=== PATIENT | female | born 1930 | race American Indian/Alaskan Native ===

== ENCOUNTER 2016-09-10 01:29 | Inpatient (IN) | payer MEDICARE, MEDICAID ==
[2016-09-10 01:30] VITALS: BMI 25.0
--- NOTE | 2016-09-10 02:01 | C.PDOC ---
History Of Present Illness Patient [facility] complaining of fever and vaginal bleeding. History is from [facility]. When patient was asked, she denies vaginal bleeding and states she is unsure why she is here. Patient denies any complaints at this time. Time Seen by Provider: 09/10/16 02:01 Chief Complaint (Nursing): Fever History Per: Other ([facility]) History/Exam Limitations: clinical condition Onset/Duration Of Symptoms: Other Current Symptoms Are (Timing): Still Present Location Of Pain: None Sick Contacts (Context): None Associated Symptoms: Fever Ear Symptoms: Bilateral: None Severity: None Pain Scale Rating Of: 0 Recent travel outside of the [place]: No Additional History Per: Group Home Past Medical History Reviewed: Historical Data, Nursing Documentation, Vital Signs Vital Signs: Last Vital Signs Temp 101.9 F H 09/10/16 05:20 Pulse 104 H 09/10/16 05:20 Resp 19 09/10/16 05:20 BP 148/59 L 09/10/16 05:20 Pulse Ox 96 09/10/16 05:35 - Medical History PMH: CAD, CHF, Dementia, Fractures, HTN - [facility] Procedures CL FX REDUC-TIBIA/FIBULA (11/18/14) INJECT/INFUSE NEC (11/18/14) Family History: States: Unknown Family Hx - Social History Hx Alcohol Use: No Hx Substance Use: No - Immunization History Hx Tetanus Toxoid Vaccination: Yes Hx Influenza Vaccination: Yes Hx Pneumococcal Vaccination: Yes Review Of Systems Constitutional: Positive for: Fever Gastrointestinal: Negative for: Nausea, Vomiting, Abdominal Pain Genitourinary: Positive for: Vaginal Bleeding Musculoskeletal: Negative for: Back Pain Physical Exam - Physical Exam Appears: Non-toxic, No Acute Distress Skin: Warm, Dry Head: Atraumatic, Normacephalic Eye(s): bilateral: EOMI Oral Mucosa: Moist Neck: Supple Chest: Symmetrical Cardiovascular: Rhythm Regular Respiratory: No Rales, No Rhonchi, No Wheezing Gastrointestinal/Abdominal: Bowel Sounds (tympanic to percussion), Soft, No Tenderness, No Guarding, No Rebound, Other (incontinent to urine) Extremity: Other (left hemiplegia) Neurological/Psych: Other (awake, alert, oriented x2) ED Course And Treatment - Laboratory Results Result Diagrams: 09/10/16 02:43 05/16/17 02:43 ECG: Interpreted By Me, Viewed By Me ECG Rhythm: Sinus Rhythm (103), Nonspecific Changes O2 Sat by Pulse Oximetry: 96 (room air) Pulse Ox Interpretation: Normal - Radiology CXR: Interpreted by Me, Viewed By Me CXR Interpretation: Yes: Other (small left effusion , possible rll infiltrate). No: Fracture, Pnemothorax Progress Note: Plan: Labs, VBG, Chest x-ray, IV fluids Disposition Discussed With Dr.: Sabas Montana Comment: accepted the pt on his service and took over the care at 3:56 AM Doctor Will See Patient In The: Hospital Counseled Patient/Family Regarding: Studies Performed, Diagnosis - Disposition Disposition: HOSPITALIZED Disposition Time: 02:01 Condition: FAIR - Clinical Impression Clinical Impression: Fever, UTI (urinary tract infection) - Scribe Statement The provider has reviewed the documentation as recorded by the Scribe Fern Thibodeaux Provider Attestation: All medical record entries made by the Scribe were at my direction and personally dictated by me. I have reviewed the chart and agree that the record accurately reflects my personal performance of the history, physical exam, medical decision making, and the department course for this patient. I have also personally directed, reviewed, and agree with the discharge instructions and disposition. Decision To Admit - Pt Status Changed To: Hospital Disposition Of: Inpatient - Admit Certification Admit to Inpatient:: After my assessment, the patient will require hospitalization for at least two midnights. This is because of the severity of symptoms shown, intensity of services needed, and/or the medical risk in this patient being treated as an outpatient. - InPatient: Physician Admission Certification:: After my assessment, the patient will require hospitalization for at least two midnights. This is because of the severity of symptoms shown, intensity of services needed, and/or the medical risk in this patient being treated as an outpatient. - . Bed Request Type: Regular Admitting Physician: Sabas Montana Patient Diagnosis: Fever, UTI (urinary tract infection)
[2016-09-10] MEDS ORDERED: Sodium Chloride 0.9% 1,000 ML IV SCH (02:15)
[2016-09-10 02:49] LABS: VENOUS BLOOD GAS BASE EXCESS 2.7 mmol/L (0.0-2.0); VENOUS BLOOD GAS PCO2 50 mmHg (40-60); VENOUS BLOOD PH 7.37 (7.32-7.43)
[2016-09-10 02:57] LABS: POTASSIUM 4.7 mmol/L (3.6-5.2)
[2016-09-10 03:00] LABS: BILIRUBIN,TOTAL 0.7 mg/dL (0.2-1.3); TOTAL PROTEIN 7.6 g/dL (6.3-8.3)
[2016-09-10 03:01] LABS: CALCIUM 8.7 mg/dl (8.6-10.4)
[2016-09-10 03:02] LABS: BASO # 0.1 K/uL (0.0-0.2); BASO % 0.5 % (0.0-2.0); EOS % 0.2 % (0.0-4.0); HEMATOCRIT 31.5 % (34.0-47.0); LYMPH # 2.8 K/uL (1.0-4.3); LYMPH % 18.9 % (20.0-40.0); MEAN CELL VOLUME 87.2 fL (81.0-99.0); MEAN CORPUSCULAR HEMOGLOBIN 27.4 pg (27.0-31.0); MEAN CORPUSCULAR HGB CONC 31.4 g/dL (33.0-37.0); MEAN PLATELET VOLUME 9.4 fL (7.2-11.7); MONO # 1.3 K/uL (0.0-0.8); RED CELL DISTRIBUTION WIDTH 15.6 % (11.5-14.5); WHITE BLOOD COUNT 14.9 K/uL (4.8-10.8)
[2016-09-10 03:13] LABS: INR 1.1
[2016-09-10] MEDS ORDERED: Piperacillin/Tazobact 3.375 gm 100 ML IVPB STA ×2 (03:16→06:21)
[2016-09-10] MEDS ORDERED: LACTULOSE 30 GM PO SCH (06:30)
[2016-09-10] MEDS ORDERED: INSULIN LISPRO PROTAMINE SC SCH (06:30)
[2016-09-10] MEDS ORDERED: INSULIN LISPRO SC SCH (06:30)
[2016-09-10] MEDS ORDERED: INSULIN LISPRO MIX SC SCH (06:30)
[2016-09-10 08:14] LABS: RBC URINE 72 /hpf (0-3); URINE BACTERIA FEW (<OCC); URINE BILIRUBIN NEGATIVE (NEGATIVE); URINE BLOOD 3+ (NEGATIVE); URINE COLOR Amber (YELLOW); URINE GLUCOSE (UA) NORMAL (Normal); URINE KETONE NEGATIVE (NEGATIVE); URINE LEUKOCYTE ESTERASE 2+ Leu/uL (Negative); URINE PROTEIN 2+ mg/dL (NEGATIVE); URINE UROBILINOGEN NORMAL mg/dL (0.2-1.0); WBC CLUMPS OCC /hpf; WBC URINE 456 /hpf (0-5)
[2016-09-10] MEDS: Nitroglycerin 0.4 mg/hr Top Patch TD SCH (09:35)
[2016-09-10] MEDS: methIMAzole 5 MG TAB PO SCH (09:36)
[2016-09-10] MEDS: Ferrous Sulfate 300 mg/5 mL Liq UD PO SCH ×3 (09:44→18:00)
[2016-09-10] MEDS: (Novolog) Insulin Aspart, Recombinant 100 u/ml 10 ml vial SC SCH ×4 (09:44→22:24)
[2016-09-10] MEDS ORDERED: TIMOLOL OP SCH ×2 (10:00)
[2016-09-10] MEDS ORDERED: Enoxaparin 40 mg Syringe SC SCH (10:00)
[2016-09-10] MEDS ORDERED: Labetalol Hydrochloride 300 mg Tab PO SCH (10:00)
--- NOTE | 2016-09-10 10:43 | CP.PCM.HP ---
History of Present Illness - History of Present Illness History of Present Illness: CC: fever Patient is an elderly group home resident who is diabetic on insulin , HTN, Hyperlipidemia, chronincally sick, incontinent to urine presents to the ED from the group home complaining of fever and vaginal bleeding.pt cannot give completet history, and denies any urinary symtoms as she is incontinnet and wears pampers. History is from group home. When patient was asked, she denies vaginal bleeding and states she is unsure why she is here. Patient denies any complaints at this time. Present on Admission - Present on Admission Any Indicators Present on Admission: No Review of Systems - Review of Systems Systems not reviewed;Unavailable: Acuity of Condition - Constitutional Constitutional: Chills, Fatigue, Fever, Lethargy - EENT Eyes: absent: As Per HPI, Blind Spots, Blurred Vision, Change in Vision, Decreased Night Vision, Diplopia, Discharge, Dry Eye, Exophthalmos, Floaters, Irritation, Itchy Eyes, Loss of Peripheral Vision, Pain, Photophobia, Requires Corrective Lenses, Sees Flashes, Spots in Vision, Tunnel Vision, Other Visual Disturbances, Loss of Vision, Other - Breasts Breasts: absent: As Per HPI, Change in Shape, Mass, Pain, Nipple Discharge, Nipple Inversion, Skin Changes, Swelling, Other - Cardiovascular Cardiovascular: absent: As Per HPI, Acrocyanosis, Chest Pain, Chest Pain at Rest , Chest Pain with Activity, Claudication, Diaphoresis, Dyspnea, Dyspnea on Exertion, Edema, Irregular Heart Rhythm, Pain Radiating to Arm/Neck/Jaw, Leg Edema, Leg Ulcers, Lightheadedness, Orthopnea, Palpitations, Paroxysmal Nocturnal Dyspnea, Pedal Edema, Radiating Pain, Rapid Heart Rate, Slow Heart Rate, Syncope, Other - Reproductive: Female Reproductive:Female: Vaginal Discharge Past Patient History - Tetanus Immunizations Tetanus Immunization: Unknown - Past Social History Smoking Status: Unknown If Ever Smoked - CARDIAC Hx Congestive Heart Failure: Yes Hx Hypertension: Yes - PULMONARY Hx Respiratory Disorders: No - NEUROLOGICAL Hx Dementia: Yes - HEENT Hx HEENT Problems: Yes Hx Glaucoma: Yes - RENAL Hx Chronic Kidney Disease: No - ENDOCRINE/METABOLIC Hx Endocrine Disorders: Yes Hx Diabetes Mellitus Type 2: Yes - HEMATOLOGICAL/ONCOLOGICAL Hx Blood Disorders: No - INTEGUMENTARY Hx Dermatological Problems: No - MUSCULOSKELETAL/RHEUMATOLOGICAL Hx Fractures: Yes - GASTROINTESTINAL Hx Gastrointestinal Disorders: No - GENITOURINARY/GYNECOLOGICAL Hx Genitourinary Disorders: No - PSYCHIATRIC Hx Substance Use: No - SURGICAL HISTORY Hx Surgeries: No Meds Allergies/Adverse Reactions: Allergies Allergy/AdvReac Type Severity Reaction Status Date / Time No Known Allergies Allergy Verified 09/10/16 01:55 Physical Exam - Constitutional Appears: No Acute Distress - Head Exam Head Exam: ATRAUMATIC, NORMAL INSPECTION, NORMOCEPHALIC - Eye Exam Eye Exam: EOMI, Normal appearance, PERRL Pupil Exam: NORMAL ACCOMODATION, PERRL Additional comments: eyes have some scabs around eye no icterus - ENT Exam ENT Exam: Mucous Membranes Moist, Normal Exam - Respiratory Exam Respiratory Exam: Clear to Auscultation Bilateral, NORMAL BREATHING PATTERN - Cardiovascular Exam Cardiovascular Exam: REGULAR RHYTHM, +S1, +S2 - GI/Abdominal Exam GI & Abdominal Exam: Normal Bowel Sounds, Soft. absent: Tenderness - Rectal Exam Rectal Exam: Deferred - Extremities Exam Additional comments: left sided hemiplegia - Neurological Exam Neurological exam: Alert, CN II-XII Intact, Normal Gait, Oriented x3, Reflexes Normal - Psychiatric Exam Psychiatric exam: Normal Affect, Normal Mood Results - Vital Signs Recent Vital Signs: Last Vital Signs Temp 100 F H 09/10/16 07:29 Pulse 101 H 09/10/16 07:29 Resp 28 H 09/10/16 07:29 BP 133/43 L 09/10/16 07:29 Pulse Ox 100 09/10/16 07:29 - Labs Result Diagrams: 09/11/16 07:00 09/11/16 07:00 Labs: Laboratory Results - last 24 hr 09/10/16 09/10/16 09/10/16 07:06 07:24 07:48 POC Glucose (mg/dL) 166 H Urine Color Ruby Urine Clarity Hazy Urine pH 8.0 Ur Specific [place] 1.012 Urine Protein 2+ H Urine Glucose (UA) Normal Urine Ketones Negative Urine Blood 3+ H Urine Nitrate Negative Urine Bilirubin Negative Urine Urobilinogen Normal Ur Leukocyte Esterase 2+ H Urine WBC (Auto) 456 H Urine RBC (Auto) 72 H Urine WBC Clumps (Auto) Occ H Ur Squamous Epith Cells 1 Urine Bacteria Few H Blood Type O POSITIVE Antibody Screen Negative Assessment & Plan (1) Fever Status: Acute (2) UTI (urinary tract infection) Assessment and Plan: rule out sepsis Status: Acute
[2016-09-10] MEDS: Sodium Chloride 0.9% 1,000 ML IV SCH ×2 (11:43→19:13)
--- NOTE | 2016-09-10 12:10 | RAD ---
PROCEDURE: CHEST RADIOGRAPH, 1 VIEW HISTORY: Shortness of breath COMPARISON: None available. FINDINGS: LUNGS: Moderate venous congestion. Right hilar prominence. Left basilar airspace opacity with small left pleural effusion. Biapical pleural thickening with upper lobe granulomatous changes. Linear consolidation at the right lung apex. Post treatment followup may be helpful if clinically indicated. PLEURA: As above. CARDIOVASCULAR: Cardiomegaly. Calcification at the aortic knob. OSSEOUS STRUCTURES: Degenerative changes in the spine and shoulders. VISUALIZED UPPER ABDOMEN: Normal. OTHER FINDINGS: None. IMPRESSION: Moderate venous congestion. Right hilar prominence. Left basilar airspace opacity with small left pleural effusion. Biapical pleural thickening with upper lobe granulomatous changes. Linear consolidation at the right lung apex. Post treatment followup may be helpful if clinically indicated.
[2016-09-10] MEDS: Brimonidine 0.2% Opth Sol (5ml) OD SCH ×2 (12:15→21:55)
[2016-09-10] MEDS: Dorzolamide 2% Opht Sol 10ml OD SCH ×2 (12:16→19:20)
[2016-09-10] MEDS: Piperacill/Tazo 2.25gm in Dex 2.25 GM/50 ML BAG IVPB SCH ×2 (16:52→22:00)
[2016-09-10] MEDS: (Novolog Mix 70/30) Insulin Aspart/Insulin Aspar 100 units/ml SC SCH (18:00)
[2016-09-10 18:58] VITALS: RESP 20
[2016-09-10] MEDS: Labetalol Hydrochloride 300 mg Tab PO SCH (21:56)
[2016-09-10] MEDS: Latanoprost 2.5 ml Opht Soln OD SCH (22:11)
[2016-09-11] MEDS: Sodium Chloride 0.9% 1,000 ML IV SCH ×3 (01:00→22:00)
[2016-09-11] MEDS ORDERED: INSULIN LISPRO PROTAMINE SC SCH (06:30)
[2016-09-11] MEDS ORDERED: INSULIN LISPRO SC SCH (06:30)
[2016-09-11] MEDS ORDERED: INSULIN LISPRO MIX SC SCH (06:30)
[2016-09-11] MEDS: Piperacill/Tazo 2.25gm in Dex 2.25 GM/50 ML BAG IVPB SCH ×3 (06:31→22:00)
[2016-09-11 07:30] LABS: BASO # 0.1 K/uL (0.0-0.2); BASO % 0.5 % (0.0-2.0); EOS # 0.1 K/uL (0.0-0.7); EOS % 0.6 % (0.0-4.0); HEMATOCRIT 27.6 % (34.0-47.0); LYMPH # 2.7 K/uL (1.0-4.3); LYMPH % 22.9 % (20.0-40.0); MEAN CELL VOLUME 88.1 fL (81.0-99.0); MEAN CORPUSCULAR HEMOGLOBIN 27.5 pg (27.0-31.0); MEAN CORPUSCULAR HGB CONC 31.2 g/dL (33.0-37.0); MEAN PLATELET VOLUME 9.1 fL (7.2-11.7); MONO # 1.1 K/uL (0.0-0.8); MONO % 9.4 % (0.0-10.0); NRBC % 0.1 % (0.0-2.0); RED CELL DISTRIBUTION WIDTH 15.5 % (11.5-14.5); WHITE BLOOD COUNT 11.6 K/uL (4.8-10.8)
[2016-09-11 07:35] LABS: POTASSIUM 4.3 mmol/L (3.6-5.2)
[2016-09-11 07:39] LABS: CALCIUM 8.2 mg/dl (8.6-10.4)
--- NOTE | 2016-09-11 09:20 | US ---
HISTORY: fever COMPARISON: None. TECHNIQUE: Sonographic evaluation of the abdomen. Please note that examination is grossly limited. The patient was unable to cooperate for the examination, both for positioning and respiratory instructions. FINDINGS: LIVER: Measures 17.3 cm. Diffusely increased echogenicity of the liver parenchyma. Consistent with fatty infiltration. No mass. No intrahepatic bile duct dilatation. GALLBLADDER: Cholelithiasis. No significant mural thickening or pericholecystic fluid. Negative sonographic Garcia sign. COMMON BILE DUCT: Measures 6 mm. No stones. No dilatation. PANCREAS: Grossly limited due to overlying bowel gas. RIGHT KIDNEY: Measures 9.4 acm. Normal echogenicity. No calculus, mass, or hydronephrosis. LEFT KIDNEY: Measures 10.2cm. Normal echogenicity. No calculus, mass, or hydronephrosis. SPLEEN: Normal in size and contour. No mass. AORTA: Could not be evaluated IVC: Could not be evaluated OTHER FINDINGS: None. IMPRESSION: Grossly limited study. Cholelithiasis without sonographic evidence of cholecystitis. Fatty infiltration of the liver. Limited visualization of pancreas. No evidence of biliary obstruction.
[2016-09-11] MEDS ORDERED: Enoxaparin 30 mg Syringe SC SCH (10:00)
[2016-09-11 10:44] VITALS: TEMP 98.5
[2016-09-11] MEDS: Dorzolamide 2% Opht Sol 10ml OD SCH ×2 (10:45→17:58)
[2016-09-11] MEDS: Brimonidine 0.2% Opth Sol (5ml) OD SCH ×2 (10:45→22:10)
[2016-09-11] MEDS: Nitroglycerin 0.4 mg/hr Top Patch TD SCH (10:47)
[2016-09-11] MEDS: Ferrous Sulfate 300 mg/5 mL Liq UD PO SCH ×3 (10:48→17:42)
[2016-09-11] MEDS: Labetalol Hydrochloride 300 mg Tab PO SCH ×2 (10:49→22:11)
[2016-09-11] MEDS: methIMAzole 5 MG TAB PO SCH (10:50)
[2016-09-11] MEDS: (Novolog) Insulin Aspart, Recombinant 100 u/ml 10 ml vial SC SCH ×4 (10:58→22:33)
[2016-09-11] MEDS: (Novolog Mix 70/30) Insulin Aspart/Insulin Aspar 100 units/ml SC SCH ×2 (10:59→17:43)
[2016-09-11 15:15] VITALS: BP 148/67; PULSE 83; O2SAT 98
--- NOTE | 2016-09-11 22:13 | CP.PCM.PN ---
Subjective - Date & Time of Evaluation Date of Evaluation: 09/11/16 Time of Evaluation: 11:20 - Subjective Subjective: Pt seen and examined at bedside, is feeling better,on medical management Objective - Vital Signs/Intake and Output Vital Signs (last 24 hours): Temp Pulse Resp BP Pulse Ox 98.5 F 83 20 148/67 98 09/11/16 15:14 09/11/16 15:14 09/11/16 15:14 09/11/16 15:14 09/11/16 15:14 - Medications Medications: Current Medications Acetaminophen (Tylenol 650 Mg Supp) 650 mg ME Q6 PRN PRN Reason: Fever >100.4 F Last Admin: 09/10/16 22:09 Dose: 650 mg Amlodipine Besylate (Norvasc) 5 mg PO DAILY FOR[facility]LY [facility], [facility]1983 Last Admin: 09/11/16 10:49 Dose: 5 mg Brimonidine Tartrate (Alphagan 0.2% Opht) 0 ml OD Q12 [facility], [facility] Last Admin: 09/11/16 22:10 Dose: 1 drop Dorzolamide HCl (Trusopt) 0 ml OD BID [facility], [facility] Last Admin: 09/11/16 17:58 Dose: 1 drop Enoxaparin Sodium (Lovenox) 30 mg SC DAILY [facility], [facility]1983 Last Admin: 09/11/16 10:59 Dose: 30 mg Famotidine (Pepcid) 20 mg PO DAILY [facility] Last Admin: 09/11/16 10:47 Dose: 20 mg Ferrous Sulfate (Feosol Liq) 220 mg PO TID [facility] Last Admin: 09/11/16 17:42 Dose: 220 mg Gabapentin (Neurontin) 200 mg PO Q12 [facility], [facility] Last Admin: 09/11/16 22:06 Dose: 200 mg Glimepiride (Amaryl) 2 mg PO ACB [facility], [facility] Last Admin: 09/11/16 11:00 Dose: 2 mg Home Med (Timolol [Betimol]) 5 ml OP BID [facility], [facility] Sodium Chloride (Sodium Chloride 0.9%) 1,000 mls @ 80 mls/hr IV .[id number] [facility], [facility] Last Admin: 09/11/16 10:49 Dose: Not Given Piperacillin Sod/Tazobactam Sod (Zosyn 2.25 Gm Iv Premix) 2.25 gm in 50 mls @ 100 mls/hr IVPB Q8H [facility] Last Admin: 09/11/16 15:02 Dose: 100 mls/hr Insulin Aspart (Novolog) 0 unit SC ACHS [facility]1983 PRN Reason: Protocol Last Admin: 09/11/16 17:43 Dose: 3 unit Insulin Aspart (Novolog Mix 70/30 (70/30 Units/Ml)) 15 units SC ACBD [facility] Last Admin: 09/11/16 17:43 Dose: 15 units Labetalol HCl (Normodyne) 300 mg PO Q12 [facility] Last Admin: 09/11/16 22:11 Dose: 300 mg Lactulose (Enulose) 30 gm PO MWF [facility] Last Admin: 09/11/16 10:50 Dose: 30 gm Latanoprost (Xalatan Opht) 0 ml OD HS [facility] Last Admin: 09/10/16 22:11 Dose: 1 ml Methimazole (Tapazole) 5 mg PO DAILY [facility] Last Admin: 09/11/16 10:50 Dose: 5 mg Nitroglycerin (Nitro-Dur 0.4 Mg/Hr Patch) 0.4 patch TD DAILY [facility] Last Admin: 09/11/16 10:47 Dose: 0.4 patch Pantoprazole Sodium (Protonix Inj) 40 mg IVP DAILY [facility] Last Admin: 09/11/16 10:47 Dose: 40 mg - Labs Labs: 09/11/16 07:00 09/11/16 07:00 PT 12.8 SECONDS (9.7-12.2) H 09/10/16 02:43 INR 1.1 09/10/16 02:43 APTT 30 SECONDS (21-34) 09/10/16 02:43 - Constitutional Appears: No Acute Distress - Head Exam Head Exam: ATRAUMATIC, NORMAL INSPECTION, NORMOCEPHALIC - Eye Exam Eye Exam: EOMI, Normal appearance, PERRL Pupil Exam: NORMAL ACCOMODATION, PERRL - Respiratory Exam Respiratory Exam: Clear to Ausculation Bilateral, NORMAL BREATHING PATTERN - Cardiovascular Exam Cardiovascular Exam: REGULAR RHYTHM, +S1, +S2. absent: Murmur Assessment and Plan (1) Fever Status: Acute (2) UTI (urinary tract infection) Status: Acute
[2016-09-11] MEDS: Latanoprost 2.5 ml Opht Soln OD SCH (22:17)
[2016-09-12] MEDS ORDERED: Albuterol-Ipratrop 3 mg / 0.5 (3 ml) UD ONE (12:55)
--- NOTE | 2016-09-12 23:08 | CP.PCM.DIS ---
Provider - Provider Date of Admission: 09/10/16 06:17 Attending physician: Sabas Montana MD Time Spent in preparation of Discharge (in minutes): 30 Diagnosis - Discharge Diagnosis (1) Fever Status: Acute (2) UTI (urinary tract infection) Status: Acute Hospital Course - Lab Results Lab Results: Micro Results 09/10/16 Unknown Urine Urine Culture - Preliminary Gram Negative Ra Most Recent Lab Values WBC 11.6 K/uL (4.8-10.8) H 09/11/16 07:00 RBC 3.13 Mil/uL (3.80-5.20) L 09/11/16 07:00 Hgb 8.6 g/dL (11.0-16.0) L 09/11/16 07:00 Hct 27.6 % (34.0-47.0) L 09/11/16 07:00 MCV 88.1 fL (81.0-99.0) 09/11/16 07:00 MCH 27.5 pg (27.0-31.0) 09/11/16 07:00 MCHC 31.2 g/dL (33.0-37.0) L 09/11/16 07:00 RDW 15.5 % (11.5-14.5) H 09/11/16 07:00 Plt Count 177 K/uL (130-400) 09/11/16 07:00 MPV 9.1 fL (7.2-11.7) 09/11/16 07:00 Neut % (Auto) 66.6 % (50.0-75.0) 09/11/16 07:00 Lymph % (Auto) 22.9 % (20.0-40.0) 09/11/16 07:00 [place] % (Auto) 9.4 % (0.0-10.0) 09/11/16 07:00 Eos % (Auto) 0.6 % (0.0-4.0) 09/11/16 07:00 Baso % (Auto) 0.5 % (0.0-2.0) 09/11/16 07:00 Neut # 7.7 K/uL (1.8-7.0) H 09/11/16 07:00 Lymph # 2.7 K/uL (1.0-4.3) 09/11/16 07:00 [place] # 1.1 K/uL (0.0-0.8) H 09/11/16 07:00 Eos # 0.1 K/uL (0.0-0.7) 09/11/16 07:00 Baso # 0.1 K/uL (0.0-0.2) 09/11/16 07:00 PT 12.8 SECONDS (9.7-12.2) H 09/10/16 02:43 INR 1.1 09/10/16 02:43 APTT 30 SECONDS (21-34) 09/10/16 02:43 pO2 33 mm/Hg (30-55) 09/10/16 02:40 VBG pH 7.37 (7.32-7.43) 09/10/16 02:40 VBG pCO2 50 mmHg (40-60) 09/10/16 02:40 VBG HCO3 26.1 mmol/L 09/10/16 02:40 VBG Total CO2 30.4 mmol/L (22-28) H 09/10/16 02:40 VBG O2 Sat (Calc) 65.3 % (40-65) H 09/10/16 02:40 VBG Base Excess 2.7 mmol/L (0.0-2.0) H 09/10/16 02:40 VBG Potassium 4.8 mmol/L (3.6-5.2) 09/10/16 02:40 Sodium 142.0 mmol/l (132-148) 09/10/16 02:40 Chloride 109.0 mmol/L (98-107) H 09/10/16 02:40 Glucose 155 mg/dl (65-105) H 09/10/16 02:40 Lactate 1.3 mmol/L (0.7-2.1) 09/10/16 02:40 Sodium 141 mmol/L (132-148) 09/11/16 07:00 Potassium 4.3 mmol/L (3.6-5.2) 09/11/16 07:00 Chloride 106 mmol/L (98-107) 09/11/16 07:00 Carbon Dioxide 26 mmol/L (22-30) 09/11/16 07:00 Anion Gap 13 (10-20) 09/11/16 07:00 BUN 31 mg/dL (7-17) H 09/11/16 07:00 Creatinine 1.3 MG/DL (0.7-1.2) H 09/11/16 07:00 Est GFR ( Amer) 47 09/11/16 07:00 Est GFR (Non-Af Amer) 39 09/11/16 07:00 POC Glucose (mg/dL) 228 mg/dL (65-110) H 09/12/16 16:36 Random Glucose 174 mg/dL (65-105) H 09/11/16 07:00 Calcium 8.2 mg/dl (8.6-10.4) L 09/11/16 07:00 Total Bilirubin 0.7 mg/dL (0.2-1.3) 09/10/16 02:43 AST 17 U/L (14-36) 09/10/16 02:43 ALT 15 U/L (9-52) 09/10/16 02:43 Alkaline Phosphatase 97 U/L (38-126) 09/10/16 02:43 Total Protein 7.6 g/dL (6.3-8.3) 09/10/16 02:43 Albumin 3.7 g/dL (3.5-5.0) 09/10/16 02:43 Globulin 3.9 gm/dL (2.2-3.9) 09/10/16 02:43 Albumin/Globulin Ratio 1.0 (1.0-2.1) 09/10/16 02:43 Venous Blood Potassium 4.8 mmol/L (3.6-5.2) 09/10/16 02:40 Urine Color Ruby (YELLOW) 09/10/16 07:48 Urine Clarity Hazy (Clear) 09/10/16 07:48 Urine pH 8.0 (5.0-8.0) 09/10/16 07:48 Ur Specific [place] 1.012 (1.003-1.030) 09/10/16 07:48 Urine Protein 2+ mg/dL (NEGATIVE) H 09/10/16 07:48 Urine Glucose (UA) Normal mg/dL (Normal) 09/10/16 07:48 Urine Ketones Negative mg/dL (NEGATIVE) 09/10/16 07:48 Urine Blood 3+ (NEGATIVE) H 09/10/16 07:48 Urine Nitrate Negative (NEGATIVE) 09/10/16 07:48 Urine Bilirubin Negative (NEGATIVE) 09/10/16 07:48 Urine Urobilinogen Normal mg/dL (0.2-1.0) 09/10/16 07:48 Ur Leukocyte Esterase 2+ Dora/uL (Negative) H 09/10/16 07:48 Urine WBC (Auto) 456 /hpf (0-5) H 09/10/16 07:48 Urine RBC (Auto) 72 /hpf (0-3) H 09/10/16 07:48 Urine WBC Clumps (Auto) Occ /hpf (NONE) H 09/10/16 07:48 Ur Squamous Epith Cells 1 /hpf (0-5) 09/10/16 07:48 Urine Bacteria Few (<OCC) H 09/10/16 07:48 Blood Type O POSITIVE 09/10/16 07:06 Antibody Screen Negative 09/10/16 07:06 - Hospital Course Hospital Course: pt is for discharge, afebrile, no shortness of breath going back to correction Discharge Exam - Head Exam Head Exam: ATRAUMATIC, NORMAL INSPECTION, NORMOCEPHALIC - Eye Exam Eye Exam: Normal appearance - Respiratory Exam Respiratory Exam: Decreased Breath Sounds - Cardiovascular Exam Cardiovascular Exam: REGULAR RHYTHM, +S1, +S2 - GI/Abdominal Exam GI & Abdominal Exam: Normal Bowel Sounds Discharge Plan - Follow Up Plan Condition: FAIR Disposition: TRANSF TO SNF Instructions: Urinary Tract Infection in Women (DC), Urinary Tract Infection in Men (DC), Fever in Adults (GEN), Dysuria (GEN)
--- NOTE | 2016-09-18 12:29 | CARD ---
APPROVED REPORT EKG Measurement Heart [id number] <Conclusion> Sinus tachycardia Possible Left atrial enlargement Borderline ECG
== END 2016-09-12 19:30 | DRG 690 ==
LOC: C.ER 01:29 → C.9I 06:17 → C.9E 08:32 → C.6T 12:46 → C.5T 18:32
PROVIDERS: ADMIT Internal Medicine; ATTEND Internal Medicine
DX: N39.0 Urinary tract infection, site not specified (principal); G81.94 Hemiplegia, unspecified affecting left nondominant side; F03.90 Unspecified dementia, unspecified severity, without behavioral disturbance, psychotic disturbance, mood disturbance, and anxiety; E86.0 Dehydration; E11.9 Type 2 diabetes mellitus without complications; I10 Essential (primary) hypertension; Z79.4 Long term (current) use of insulin

== ENCOUNTER 2017-05-20 19:53 | Inpatient (IN) | payer MEDICARE, MEDICAID ==
[2017-05-20 19:53] VITALS: BMI 28.1
[2017-05-20] MEDS ORDERED: Sodium Chloride 0.9% 1,000 ML IV ONE (21:02)
--- NOTE | 2017-05-20 21:22 | C.PDOC ---
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 Denies fever, chills, chest pain, or SOB. Chief Complaint (Nursing): Medical Clearance History Per: Patient History/Exam Limitations: no limitations Onset/Duration Of Symptoms: Hrs Current Symptoms Are (Timing): Still Present Recent travel outside of the [place]: No Past Medical History Reviewed: Historical Data, Nursing Documentation, Vital Signs Vital Signs: Last Vital Signs Temp 98.6 F 05/20/17 19:59 Pulse 94 H 05/20/17 19:59 Resp 26 H 05/20/17 19:59 BP 149/72 05/20/17 19:59 Pulse Ox 98 05/20/17 22:19 - Medical History PMH: CAD, CHF, Dementia, Fractures, HTN, Hyperlipidemia - [facility] Procedures CL FX REDUC-TIBIA/FIBULA (11/18/14) INJECT/INFUSE NEC (11/18/14) Family History: States: Unknown Family Hx - Social History Hx Alcohol Use: No (UNKOWN) Hx Substance Use: No - Immunization History Hx Tetanus Toxoid Vaccination: No Hx Influenza Vaccination: No Hx Pneumococcal Vaccination: No Review Of Systems Constitutional: Negative for: Fever, Chills Cardiovascular: Negative for: Chest Pain, Palpitations Respiratory: Negative for: Shortness of Breath Gastrointestinal: Negative for: Abdominal Pain Skin: Positive for: Other (Chronically infected wound to right toes) Physical Exam - Physical Exam Appears: Non-toxic, Other (Alert. Conscious) Skin: Warm, Dry Head: Atraumatic, Normacephalic Eye(s): bilateral: Normal Inspection Oral Mucosa: Moist Chest: Symmetrical, No Tenderness Cardiovascular: Rhythm Regular Respiratory: Normal Breath Sounds, No Rales, No Rhonchi, No Wheezing Gastrointestinal/Abdominal: Soft, No Tenderness Extremity: Other (Infected wound to dorsum of right toes) Neurological/Psych: Oriented x3, Normal Speech ED Course And Treatment - Laboratory Results Result Diagrams: 05/20/17 21:11 05/20/17 21:11 ECG: Interpreted By Me, Viewed By Me ECG Rhythm: Sinus Rhythm ECG Interpretation: No Acute Changes, Abnormal Interpretation Of ECG: NSR, LVH Rate From EC O2 Sat by Pulse Oximetry: 98 (room air) Pulse Ox Interpretation: Normal Progress Note: EKG, blood work, CXR, and urinalysis ordered. IV fluids administered. Disposition Discussed With : Sabas Montana Doctor Will See Patient In The: Hospital Counseled Patient/Family Regarding: Diagnosis - Disposition Disposition: HOSPITALIZED Disposition Time: 22:22 Condition: STABLE Forms: [facility] (Japanese) - POA Present On Arrival: None - Clinical Impression Clinical Impression: Foot infection, Diabetes mellitus, Renal insufficiency - Scribe Statement The provider has reviewed the documentation as recorded by the Scribileana Colbert All medical record entries made by the Scribe were at my direction and personally dictated by me. I have reviewed the chart and agree that the record accurately reflects my personal performance of the history, physical exam, medical decision making, and the department course for this patient. I have also personally directed, reviewed, and agree with the discharge instructions and disposition.
[2017-05-20 21:33] LABS: BASO # 0.1 K/uL (0.0-0.2); BASO % 0.6 % (0.0-2.0); EOS # 0.1 K/uL (0.0-0.7); EOS % 0.7 % (0.0-4.0); HEMOGLOBIN 8.7 g/dL (11.0-16.0); LYMPH # 2.3 K/uL (1.0-4.3); MEAN CELL VOLUME 86.4 fL (81.0-99.0); MEAN CORPUSCULAR HEMOGLOBIN 27.1 pg (27.0-31.0); MEAN CORPUSCULAR HGB CONC 31.3 g/dL (33.0-37.0); MEAN PLATELET VOLUME 9.7 fL (7.2-11.7); MONO # 0.7 K/uL (0.0-0.8); MONO % 6.1 % (0.0-10.0); NEUT # 8.2 K/uL (1.8-7.0); NEUT % 72.6 % (50.0-75.0); RBC 3.22 Mil/uL (3.80-5.20); RED CELL DISTRIBUTION WIDTH 15.8 % (11.5-14.5); WHITE BLOOD COUNT 11.3 K/uL (4.8-10.8)
[2017-05-20 21:37] LABS: ALB/GLOB RATIO 0.8 (1.0-2.1); ALBUMIN 3.5 g/dL (3.5-5.0); CALCIUM 8.9 mg/dl (8.6-10.4)
[2017-05-20 21:40] LABS: INR 1.1; PROTHROMBIN TIME 12.4 SECONDS (9.7-12.2)
[2017-05-20] MEDS ORDERED: (Novolin R) Insulin Human Regular 100 units/ml vial SC ONE (22:10)
[2017-05-20] MEDS ORDERED: (Novolin R) Insulin Human Regular 100 units/ml vial ONE (22:20)
[2017-05-20] MEDS: Labetalol Hydrochloride 300 mg Tab PO SCH (23:19)
--- NOTE | 2017-05-20 23:53 | CP.PCM.CON ---
History of Present Illness - History of Present Illness History of Present Illness: Vascular Surgery Consult Note for Dr. Reid This an 87 year old demented female who is unable to provide any medical or social history neither remote or recent. I examined this patient for a stat consult for RLE gangrene. The patient has an obvious unlcerover her left halux, that is not foul smelling. Her vital signs are currently stable and she does not appear septic. She does not endorse any pain, nor is she aware of any wounds or lesions on her lower extremity. PMH: HTN, DM, PAD PSH: Multiple LE and Cardiac Stents ALL: NKDA Review of Systems - Review of Systems Systems not reviewed;Unavailable: Altered Mental Status All systems: reviewed and no additional remarkable complaints except Past Patient History - Tetanus Immunizations Tetanus Immunization: Unknown - Past Medical History & Family History Past Medical History?: Yes - Past Social History Smoking Status: Unknown If Ever Smoked - CARDIAC Hx Congestive Heart Failure: Yes Hx Hypertension: Yes - PULMONARY Hx Respiratory Disorders: No - NEUROLOGICAL Hx Dementia: Yes - HEENT Hx HEENT Problems: Yes Hx Blind: Yes Hx Glaucoma: Yes - RENAL Hx Chronic Kidney Disease: No - ENDOCRINE/METABOLIC Hx Endocrine Disorders: Yes Hx Diabetes Mellitus Type 1: Yes - HEMATOLOGICAL/ONCOLOGICAL Hx Blood Transfusions: No - INTEGUMENTARY Hx Dermatological Problems: No - MUSCULOSKELETAL/RHEUMATOLOGICAL Hx Fractures: Yes - GASTROINTESTINAL Hx Gastrointestinal Disorders: No - GENITOURINARY/GYNECOLOGICAL Hx Genitourinary Disorders: No - PSYCHIATRIC Hx Substance Use: No - ANESTHESIA Hx Anesthesia Reactions: No Hx Malignant Hyperthermia: No Meds Allergies/Adverse Reactions: Allergies Allergy/AdvReac Type Severity Reaction Status Date / Time No Known Allergies Allergy Verified 05/20/17 20:10 - Medications Medications: Current Medications Brimonidine Tartrate (Alphagan 0.2% Opht) 0 ml OU Q12 [facility] Dorzolamide HCl (Trusopt) 0 ml OU BID [facility] Enoxaparin Sodium (Lovenox) 30 mg SC DAILY [facility] Famotidine (Pepcid) 20 mg PO DAILY [facility] Ferrous Sulfate (Feosol) 325 mg PO DAILY [facility] Home Med (Timolol [Betimol]) 1 drop EACHEYE BID JANET Hypromellose (Tears Naturale Forte) 1 ml OU DAILY [facility] Sodium Chloride (Sodium Chloride 0.9%) 1,000 mls @ 100 mls/hr IV .Q10H ONE Stop: 05/21/17 07:01 Last Admin: 05/20/17 21:11 Dose: 100 mls/hr Cefazolin Sodium 500 mg/ (Sodium Chloride) 50 mls @ 100 mls/hr IVPB Q8H [facility] Last Admin: 05/20/17 23:00 Dose: 100 mls/hr Insulin Detemir (Levemir) 20 unit SC ACBHS [facility] Insulin Human Regular (Novolin R) 0 unit SC ACHS [facility] PRN Reason: Protocol Labetalol HCl (Normodyne) 300 mg PO Q12H [facility] Last Admin: 05/20/17 23:19 Dose: 300 mg Lactulose (Enulose) 30 gm PO Q2D [facility] Last Admin: 05/20/17 23:19 Dose: Not Given Latanoprost (Xalatan Opht) 0 ml OU HS [facility] Methimazole (Tapazole) 5 mg PO QAM [facility] Nitroglycerin (Nitro-Dur 0.4 Mg/Hr Patch) 1 patch TD DAILY [facility] Rosuvastatin Calcium (Crestor) 10 mg PO DAILY [facility] Physical Exam - Constitutional Appears: Non-toxic, No Acute Distress, Confused - Head Exam Head Exam: ATRAUMATIC, NORMOCEPHALIC - Eye Exam Eye Exam: EOMI - ENT Exam ENT Exam: Mucous Membranes Moist - Respiratory Exam Respiratory Exam: NORMAL BREATHING PATTERN - Cardiovascular Exam Cardiovascular Exam: +S1, +S2 - GI/Abdominal Exam GI & Abdominal Exam: Soft. absent: Guarding, Hernia, Rebound, Rigid - Extremities Exam Additional comments: Dopplerable pt on right no dp signal, cyanotic skin changes, right halux ulcer, LLE with pressure boot - Psychiatric Exam Psychiatric exam: Normal Mood Results - Vital Signs Recent Vital Signs: Last Vital Signs Temp 98.6 F 05/20/17 19:59 Pulse 104 H 05/20/17 23:19 Resp 20 05/20/17 23:19 BP 137/76 05/20/17 23:19 Pulse Ox 96 05/20/17 23:19 - Labs Result Diagrams: 05/20/17 21:11 05/20/17 21:11 Labs: Laboratory Results - last 24 hr 05/20/17 05/20/17 05/20/17 21:11 21:11 21:11 WBC 11.3 H RBC 3.22 L Hgb 8.7 L Hct 27.8 L MCV 86.4 MCH 27.1 MCHC 31.3 L RDW 15.8 H Plt Count 219 MPV 9.7 Neut % (Auto) 72.6 Lymph % (Auto) 20.0 Randall % (Auto) 6.1 Eos % (Auto) 0.7 Baso % (Auto) 0.6 Neut # 8.2 H Lymph # 2.3 Randall # 0.7 Eos # 0.1 Baso # 0.1 PT 12.4 H INR 1.1 APTT 26 Sodium 139 Potassium 4.7 Chloride 108 H Carbon Dioxide 22 Anion Gap 14 BUN 46 H Creatinine 1.3 H Est GFR ( Amer) 47 Est GFR (Non-Af Amer) 39 Random Glucose 386 H Calcium 8.9 Total Bilirubin 0.6 AST 34 ALT 38 Alkaline Phosphatase 123 Total Protein 7.9 Albumin 3.5 Globulin 4.4 H Albumin/Globulin Ratio 0.8 L Assessment & Plan - Assessment and Plan (Free Text) Assessment: 87F with PAD and necrotic distal RLE Vital Signs Stable WBC 11.3 will trend May need RLE amputation will discuss with Dr. Reid Will need medical optimization and cardiac clearance. D/W Dr. Franklin Maldonado PGY2
[2017-05-21] MEDS: (Novolin R) Insulin Human Regular 100 units/ml vial SC SCH ×4 (08:18→21:12)
[2017-05-21] MEDS: Insulin Detemir 100 units/ml Vial (Levemir) SC SCH ×2 (08:19→23:07)
--- NOTE | 2017-05-21 09:16 | RAD ---
PROCEDURE: CHEST RADIOGRAPH, 1 VIEW HISTORY: SOB COMPARISON: Chest radiograph dated 09/10/2016. FINDINGS: LUNGS: Stable chronic prominence of the bilateral interstitial markings with superimposed pulmonary vascular congestion considered. PLEURA: Stable biapical pleural-parenchymal changes. No pneumothorax or pleural fluid seen. CARDIOVASCULAR: Atherosclerotic aortic calcifications. Cardiomediastinal silhouette stably prominent. OSSEOUS STRUCTURES: Unchanged. VISUALIZED UPPER ABDOMEN: Normal. OTHER FINDINGS: None. IMPRESSION: Stable chronic prominence of the bilateral interstitial markings with superimposed pulmonary vascular congestion considered.
[2017-05-21] MEDS ORDERED: Tears Naturale Forte (15ml) OU SCH (10:00)
[2017-05-21] MEDS: Nitroglycerin 0.4 mg/hr Top Patch TD SCH (10:47)
[2017-05-21] MEDS: methIMAzole 5 MG TAB PO SCH (10:48)
[2017-05-21] MEDS: Enoxaparin 30 mg Syringe SC SCH (10:48)
[2017-05-21] MEDS: Labetalol Hydrochloride 300 mg Tab PO SCH ×2 (10:50→21:45)
[2017-05-21] MEDS: Brimonidine 0.2% Opth Sol (5ml) OU SCH ×2 (14:18→21:36)
[2017-05-21] MEDS: Dorzolamide 2% Opht Sol 10ml OU SCH ×2 (14:19→17:05)
--- NOTE | 2017-05-21 16:01 | CARD ---
APPROVED REPORT EKG Measurement Heart [id number] <Conclusion> Normal sinus rhythm Possible Left atrial enlargement Left ventricular hypertrophy Abnormal ECG
--- NOTE | 2017-05-21 17:41 | CP.PCM.PN ---
Subjective - Date & Time of Evaluation Date of Evaluation: 05/21/17 Time of Evaluation: 15:00 - Subjective Subjective: Vascular Surgery Pt S&E, NAEO. no complaints at this time. Objective - Vital Signs/Intake and Output Vital Signs (last 24 hours): Temp Pulse Resp BP Pulse Ox 97.3 F L 82 20 134/79 98 05/21/17 16:00 05/21/17 16:00 05/21/17 16:00 05/21/17 16:00 05/21/17 16:00 Intake and Output: 05/21/17 05/21/17 06:59 18:59 Intake Total 2049 Output Total Balance 2048 - Medications Medications: Current Medications Artificial Tears (Artificial Tears) 0 ml OU DAILY [facility] Aspirin (Aspirin Chewable) 81 mg PO DAILY [facility] Last Admin: 05/21/17 17:00 Dose: 81 mg Brimonidine Tartrate (Alphagan 0.2% Opht) 0 ml OU Q12 [facility] Last Admin: 05/21/17 14:18 Dose: 1 applic Dorzolamide HCl (Trusopt) 0 ml OU BID [facility] Last Admin: 05/21/17 17:05 Dose: 1 applic Enoxaparin Sodium (Lovenox) 30 mg SC DAILY [facility] Last Admin: 05/21/17 10:48 Dose: 30 mg Famotidine (Pepcid) 20 mg PO DAILY [facility] Last Admin: 05/21/17 10:47 Dose: 20 mg Ferrous Sulfate (Feosol) 325 mg PO DAILY [facility] Last Admin: 05/21/17 10:47 Dose: 325 mg Cefazolin Sodium 500 mg/ (Sodium Chloride) 50 mls @ 100 mls/hr IVPB Q8H [facility] Last Admin: 05/21/17 14:22 Dose: 100 mls/hr Insulin Detemir (Levemir) 20 unit SC ACBHS [facility] Last Admin: 05/21/17 08:19 Dose: 20 unit Insulin Human Regular (Novolin R) 0 unit SC ACHS [facility] PRN Reason: Protocol Last Admin: 05/21/17 17:00 Dose: 2 unit Labetalol HCl (Normodyne) 300 mg PO Q12H [facility] Last Admin: 05/21/17 10:50 Dose: 300 mg Lactulose (Enulose) 30 gm PO Q2D [facility] Last Admin: 05/20/17 23:19 Dose: Not Given Latanoprost (Xalatan Opht) 0 ml OU HS [facility] Methimazole (Tapazole) 5 mg PO QAM [facility] Last Admin: 05/21/17 10:48 Dose: 5 mg Nitroglycerin (Nitro-Dur 0.4 Mg/Hr Patch) 1 patch TD DAILY [facility] Last Admin: 05/21/17 10:47 Dose: 1 patch Pneumococcal Polyvalent Vaccine (Pneumovax 23 Vaccine) 0.5 ml IM .ONCE ONE Stop: 05/23/17 10:01 Rosuvastatin Calcium (Crestor) 10 mg PO DAILY [facility] Last Admin: 05/21/17 10:47 Dose: 10 mg Timolol Maleate (Timoptic 0.5% Ophth Soln) 1 drop OU BID [facility] Last Admin: 05/21/17 17:05 Dose: 1 drop - Labs Labs: 05/20/17 21:11 05/20/17 21:11 PT 12.4 SECONDS (9.7-12.2) H 05/20/17 21:11 INR 1.1 05/20/17 21:11 APTT 26 SECONDS (21-34) 05/20/17 21:11 - Constitutional Appears: Non-toxic, No Acute Distress - Head Exam Head Exam: ATRAUMATIC, NORMOCEPHALIC - Respiratory Exam Respiratory Exam: NORMAL BREATHING PATTERN. absent: Respiratory Distress - GI/Abdominal Exam GI & Abdominal Exam: Soft. absent: Distended, Guarding, Tenderness - Extremities Exam Additional comments: Dopplerable pt on right no dp signal, cyanotic skin changes, right halux ulcer, LLE with pressure boot - Neurological Exam Neurological Exam: Alert, Awake - Skin Skin Exam: Dry, Warm Assessment and Plan - Assessment and Plan (Free Text) Assessment: 87F with PAD and necrotic distal RLE Plan: Await cardiac clearance Planning for OR for Amputation on 05/23/17 D/W Dr Franklin eVla PGY4
--- NOTE | 2017-05-21 18:19 | CON ---
DATE: CARDIOLOGY CONSULTATION REASON FOR CONSULTATION: Preoperative evaluation. HISTORY OF PRESENT ILLNESS: The patient is an 87-year-old -Cymro female, who has dementia, a senior care resident, unable to provide any medical history, who was admitted with foot cellulitis. The patient was evaluated by Dr. Reid and may need right lower extremity amputation. According to the vascular surgical evaluation, the patient has a history of multiple lower extremity stents as well as cardiac stents. According to the history and physical of Dr. Sabas Montana in August of last year, the patient has history of hypertension, hyperlipidemia and incontinent. There is no available cardiac workup on the available history to me on the [employer] database. SOCIAL HISTORY: The patient is a senior care resident. MEDICATIONS: Cefazolin 500 mg intravenously q. 8 hours, Crestor 10 mg once a day, Enulose 30 mg every other day, Feosol 325 mg once a day, Lovenox 30 mg once a day, Normodyne 300 mg twice a day, Nitro-Dur 0.4 one patch daily. REVIEW OF SYSTEMS: No reported hypertension. No reported diarrhea. No reported fever or chills. PHYSICAL EXAMINATION: GENERAL: The patient is an elderly female, who is confused and does not appear to be in any respiratory distress. VITAL SIGNS: Blood pressure 37330, heart rate 74, temperature 98.4, respirations 20. HEENT: Pale conjunctivae. CHEST: Bilateral rhonchi. HEART: S1 and S2 regular. EXTREMITIES: Dressing is applied to both feet. LABORATORY DATA: Hemoglobin and hematocrit 8.7 and 27.8, white count 11.3, platelet count 219,000. SMA-7: Sodium 139, potassium 4.7, chloride 108, CO2 of 22, glucose 386, BUN 46, creatinine 1.3. INR is 1.1, PTT 26. Chest x-ray: Borderline cardiomegaly and prominent bronchovascular markings. EKG revealed sinus rhythm, possible left atrial enlargement, LVH by voltage. ASSESSMENT: 1. Peripheral vascular disease. 2. Foot cellulitis. For planned right lower extremity amputation. 3. Uncontrolled diabetes mellitus. 4. Chronic renal insufficiency. 5. Anemia. 6. Questionable history of coronary stenting. 7. Hypertension. 8. Hyperthyroidism. RECOMMENDATIONS: Continue current IV cefazolin. Continue Tapazole 5 mg once a day, Pepcid 20 mg p.o. once a day, Normodyne 300 mg twice a day, Nitro-Dur 0.4 mg daily, Lovenox 30 mg once a day, Crestor 10 mg once a day. Start aspirin 81 mg once a day. Obtain an echocardiogram. Silvestre Zaman MD
[2017-05-21] MEDS: Latanoprost 2.5 ml Opht Soln OU SCH (21:36)
--- NOTE | 2017-05-21 23:05 | CP.PCM.HP ---
History of Present Illness - History of Present Illness History of Present Illness: CC: Right foot gangrene HPI: This an 87 year old demented AA female with PMH significant for type 2 DM on insulin, HTN, Hyperlipidemia, blind with diabetic retinopathy and who is resident of custodial for long time , she is complaint with diet, medication and follow up but is unable to provide any medical or social history neither remote or recent.Pt was examined by Dr.Peter parra for vascular consult for RLE gangrene.Pt dies not have vasculature that can be revascularized so conservative approach will be required and pt might need amputation . The patient has an obvious unlcerover her left halux, that is not foul smelling. Her vital signs are currently stable and she does not appear septic. She does not endorse any pain, nor is she aware of any wounds or lesions on her lower extremity. Pt c/o pain at the site. Pt family agreed for amputation in light of deteriting foot and she is admitted. PMH: HTN, DM, PAD PSH: Multiple LE and Cardiac Stents ALL: NKDA Present on Admission - Present on Admission Any Indicators Present on Admission: Yes Review of Systems - Review of Systems Systems not reviewed;Unavailable: Acuity of Condition, Dementia - Constitutional Constitutional: Fatigue, Lethargy, Malaise - EENT Eyes: Blind Spots, Blurred Vision Nose/Mouth/Throat: absent: As Per HPI, Epistaxis, Nasal Congestion, Nasal Discharge, Nasal Obstruction, Nasal Trauma, Nose Pain, Post Nasal Drip, Sinus Pain, Sinus Pressure, Bleeding Gums, Change in Voice, Dental Pain, Dry Mouth, Dysphagia, Halitosis, Hoarsness, Lip Swelling, Mouth Lesions, Mouth Pain, Odynophagia, Sore Throat, Throat Swelling, Tongue Swelling, Facial Pain, Neck Pain, Neck Mass, Other - Cardiovascular Cardiovascular: absent: As Per HPI, Acrocyanosis, Chest Pain, Chest Pain at Rest , Chest Pain with Activity, Claudication, Diaphoresis, Dyspnea, Dyspnea on Exertion, Edema, Irregular Heart Rhythm, Pain Radiating to Arm/Neck/Jaw, Leg Edema, Leg Ulcers, Lightheadedness, Orthopnea, Palpitations, Paroxysmal Nocturnal Dyspnea, Pedal Edema, Radiating Pain, Rapid Heart Rate, Slow Heart Rate, Syncope, Other - Respiratory Respiratory: absent: As Per HPI, Cough, Dyspnea, Hemoptysis, Dyspnea on Exertion , Wheezing, Snoring, Stridor, Pain on Inspiration, Chest Congestion, Excessive Mucous Production, Change in Mucous Color, Pain with Coughing, Other - Gastrointestinal Gastrointestinal: absent: As Per HPI, Abdominal Pain, Belching, Bloating, Change in Bowel Habits, Change in Stool Character, Coffee Ground Emesis, Constipation, Cramping, Diarrhea, Dyspepsia, Dysphagia, Early Satiety, Excessive Flatus, Fecal Incontinence, Heartburn, Hematemesis, Hematochezia, Loose Stools, Melena, Nausea, Odynophagia, Temesmus, Vomiting, Other - Genitourinary Genitourinary: absent: As Per HPI, Change in Urinary Stream, Difficulty Urinating, Dysuria, Flank Pain, Hematuria, Pyuria, Nocturia, Urinary Incontinence, Urinary Frequency, Urinary Hesitance, Urinary Urgency, Voiding Freq/Small Amts, Freq UTI, Hx Renal/Bladder Calculi, Hx /Renal Surgery, Bladder Distension, Other - Integumentary Integumentary: absent: As Per HPI, Acne, Alopecia, Bleeding Lesions, Change in Hair, Change in Nails, Change in Pigmentation, Changing Lesions, Dry Skin, Erythema, Furuncle, Hirsutism, Lesions, New Lesions, Non-Healing Lesions, Photosensitivity, Pruritus, Rash, Skin Pain, Skin Ulcer, Sores, Striae, Swelling , Unusual Bruising, Wounds, Jaundice, Other - Neurological Neurological: Confusion, Memory Loss Past Patient History - Tetanus Immunizations Tetanus Immunization: Unknown - Past Medical History & Family History Past Medical History?: Yes - Past Social History Smoking Status: Unknown If Ever Smoked - CARDIAC Hx Cardiac Disorders: Yes (CORONARY STENTS) Hx Congestive Heart Failure: Yes Hx Hypertension: Yes - PULMONARY Hx Respiratory Disorders: No - NEUROLOGICAL HX Cerebrovascular Accident: Yes (L WEAKNESS) - HEENT Hx HEENT Problems: Yes Hx Blind: Yes Hx Glaucoma: Yes - RENAL Hx Chronic Kidney Disease: No - ENDOCRINE/METABOLIC Hx Diabetes Mellitus Type 1: Yes - HEMATOLOGICAL/ONCOLOGICAL Hx Blood Transfusions: No - INTEGUMENTARY Hx Dermatological Problems: No - MUSCULOSKELETAL/RHEUMATOLOGICAL Hx Arthritis: Yes (KNEES) - GASTROINTESTINAL Hx Gastrointestinal Disorders: No - GENITOURINARY/GYNECOLOGICAL Hx Genitourinary Disorders: No - PSYCHIATRIC Hx Substance Use: No - ANESTHESIA Hx Anesthesia Reactions: No Hx Malignant Hyperthermia: No Meds Allergies/Adverse Reactions: Allergies Allergy/AdvReac Type Severity Reaction Status Date / Time No Known Allergies Allergy Verified 05/20/17 20:10 Physical Exam - Constitutional Appears: No Acute Distress - Eye Exam Eye Exam: EOMI, Normal appearance, PERRL Pupil Exam: NORMAL ACCOMODATION, PERRL Additional comments: positive pallor neg jaundice - Respiratory Exam Respiratory Exam: Clear to Auscultation Bilateral, NORMAL BREATHING PATTERN - Cardiovascular Exam Cardiovascular Exam: REGULAR RHYTHM, Systolic Murmur Additional comments: 2/6 ESM at apex - GI/Abdominal Exam GI & Abdominal Exam: Normal Bowel Sounds, Soft. absent: Tenderness - Extremities Exam Additional comments: right foot discoloration starting from foot with absent DP, PT, left foot has not gangrene but absent pulses propiception and vibration senses are impaired in b/l feet - Neurological Exam Neurological exam: Abnormal Gait - Psychiatric Exam Psychiatric exam: Normal Affect, Normal Mood Results - Vital Signs Recent Vital Signs: Last Vital Signs Temp 97.3 F L 05/21/17 16:00 Pulse 82 05/21/17 16:00 Resp 20 05/21/17 16:00 BP 134/79 05/21/17 16:00 Pulse Ox 98 05/21/17 16:00 - Labs Result Diagrams: 05/20/17 21:11 05/20/17 21:11 Labs: Laboratory Results - last 24 hr 05/21/17 05/21/17 05/21/17 02:21 07:19 11:35 POC Glucose (mg/dL) 162 H 152 H 264 H 05/21/17 05/21/17 16:26 20:51 POC Glucose (mg/dL) 201 H 196 H Assessment & Plan (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
[2017-05-22] MEDS: (Novolin R) Insulin Human Regular 100 units/ml vial SC SCH ×4 (07:30→21:34)
[2017-05-22] MEDS: Insulin Detemir 100 units/ml Vial (Levemir) SC SCH ×2 (07:59→22:51)
--- NOTE | 2017-05-22 08:08 | CP.PCM.PN ---
Subjective - Date & Time of Evaluation Date of Evaluation: 05/22/17 Time of Evaluation: 08:00 - Subjective Subjective: 87F w/PAD,seen and evalauted today, necrosis of distal RLE, currently stable Cardiac recs- pre op echo (awaiting official read), ASA Plan for OR after cardiac clearnce for amputation Objective - Vital Signs/Intake and Output Vital Signs (last 24 hours): Temp Pulse Resp BP Pulse Ox 98.3 F 90 20 155/85 H 97 05/22/17 07:36 05/22/17 07:36 05/22/17 07:36 05/22/17 07:36 05/22/17 07:36 Intake and Output: 05/22/17 05/22/17 06:59 18:59 Intake Total 500 Balance 500 - Medications Medications: Current Medications Artificial Tears (Artificial Tears) 0 ml OU DAILY [facility] Aspirin (Aspirin Chewable) 81 mg PO DAILY [facility] Last Admin: 05/21/17 17:00 Dose: 81 mg Brimonidine Tartrate (Alphagan 0.2% Opht) 0 ml OU Q12 [facility] Last Admin: 05/21/17 21:36 Dose: 1 applic Dorzolamide HCl (Trusopt) 0 ml OU BID [facility] Last Admin: 05/21/17 17:05 Dose: 1 applic Enoxaparin Sodium (Lovenox) 30 mg SC DAILY [facility] Last Admin: 05/21/17 10:48 Dose: 30 mg Famotidine (Pepcid) 20 mg PO DAILY [facility] Last Admin: 05/21/17 10:47 Dose: 20 mg Ferrous Sulfate (Feosol) 325 mg PO DAILY [facility] Last Admin: 05/21/17 10:47 Dose: 325 mg Cefazolin Sodium 500 mg/ (Sodium Chloride) 50 mls @ 100 mls/hr IVPB Q8H [facility] Last Admin: 05/22/17 06:00 Dose: 100 mls/hr Insulin Detemir (Levemir) 20 unit SC ACBHS [facility] Last Admin: 05/22/17 07:59 Dose: 20 unit Insulin Human Regular (Novolin R) 0 unit SC ACHS [facility] PRN Reason: Protocol Last Admin: 05/21/17 21:12 Dose: Not Given Labetalol HCl (Normodyne) 300 mg PO Q12H [facility] Last Admin: 05/21/17 21:45 Dose: 300 mg Lactulose (Enulose) 30 gm PO Q2D [facility] Last Admin: 05/20/17 23:19 Dose: Not Given Latanoprost (Xalatan Opht) 0 ml OU HS [facility] Last Admin: 05/21/17 21:36 Dose: 2.5 ml Methimazole (Tapazole) 5 mg PO QAM [facility] Last Admin: 05/21/17 10:48 Dose: 5 mg Nitroglycerin (Nitro-Dur 0.4 Mg/Hr Patch) 1 patch TD DAILY [facility] Last Admin: 05/21/17 10:47 Dose: 1 patch Pneumococcal Polyvalent Vaccine (Pneumovax 23 Vaccine) 0.5 ml IM .ONCE ONE Stop: 05/23/17 10:01 Rosuvastatin Calcium (Crestor) 10 mg PO DAILY [facility] Last Admin: 05/21/17 10:47 Dose: 10 mg Timolol Maleate (Timoptic 0.5% Oph Soln) 1 drop OU BID [facility] Last Admin: 05/21/17 17:05 Dose: 1 drop - Labs Labs: 05/20/17 21:11 05/20/17 21:11 PT 12.4 SECONDS (9.7-12.2) H 05/20/17 21:11 INR 1.1 05/20/17 21:11 APTT 26 SECONDS (21-34) 05/20/17 21:11 - Constitutional Appears: No Acute Distress - Head Exam Head Exam: ATRAUMATIC, NORMAL INSPECTION, NORMOCEPHALIC - Eye Exam Eye Exam: EOMI, Normal appearance, PERRL Pupil Exam: NORMAL ACCOMODATION, PERRL - Respiratory Exam Respiratory Exam: Clear to Ausculation Bilateral, NORMAL BREATHING PATTERN - Cardiovascular Exam Cardiovascular Exam: REGULAR RHYTHM, +S1, +S2. absent: Murmur - GI/Abdominal Exam GI & Abdominal Exam: Soft, Normal Bowel Sounds. 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
[2017-05-22] MEDS: Brimonidine 0.2% Opth Sol (5ml) OU SCH ×2 (09:28→21:35)
[2017-05-22] MEDS: Aritificial Tears (15ml) OU SCH (09:29)
[2017-05-22] MEDS: Dorzolamide 2% Opht Sol 10ml OU SCH ×2 (09:32→17:46)
[2017-05-22] MEDS: Nitroglycerin 0.4 mg/hr Top Patch TD SCH (09:35)
[2017-05-22] MEDS: Enoxaparin 30 mg Syringe SC SCH (09:35)
[2017-05-22] MEDS: methIMAzole 5 MG TAB PO SCH (09:35)
[2017-05-22] MEDS: Labetalol Hydrochloride 300 mg Tab PO SCH ×4 (09:35→22:51)
--- NOTE | 2017-05-22 10:41 | CP.PCM.PN ---
Subjective - Date & Time of Evaluation Date of Evaluation: 05/22/17 Time of Evaluation: 06:30 - Subjective Subjective: Vascular surgery progress note for Dr. Dennise Samuel, PGY-1 Pt S & E at bedside this AM. Pt resting comfortably in bed, sleeping but arousable to verbal stimuli. Denies any pain unless RLE palpated, other problems. Objective - Vital Signs/Intake and Output Vital Signs (last 24 hours): Temp Pulse Resp BP Pulse Ox 98.3 F 90 20 155/85 H 97 05/22/17 07:36 05/22/17 07:36 05/22/17 07:36 05/22/17 07:36 05/22/17 07:36 Intake and Output: 05/22/17 05/22/17 06:59 18:59 Intake Total 500 Balance 500 - Medications Medications: Current Medications Artificial Tears (Artificial Tears) 0 ml OU DAILY [facility] Last Admin: 05/22/17 09:29 Dose: 1 applic Aspirin (Aspirin Chewable) 81 mg PO DAILY [facility] Last Admin: 05/22/17 09:34 Dose: 81 mg Brimonidine Tartrate (Alphagan 0.2% Opht) 0 ml OU Q12 [facility] Last Admin: 05/22/17 09:28 Dose: 1 applic Dorzolamide HCl (Trusopt) 0 ml OU BID [facility] Last Admin: 05/22/17 09:32 Dose: 1 applic Enoxaparin Sodium (Lovenox) 30 mg SC DAILY [facility] Last Admin: 05/22/17 09:35 Dose: 30 mg Famotidine (Pepcid) 20 mg PO DAILY [facility] Last Admin: 05/22/17 09:35 Dose: 20 mg Ferrous Sulfate (Feosol) 325 mg PO DAILY [facility] Last Admin: 05/22/17 09:34 Dose: 325 mg Cefazolin Sodium 500 mg/ (Sodium Chloride) 50 mls @ 100 mls/hr IVPB Q8H [facility] Last Admin: 05/22/17 06:00 Dose: 100 mls/hr Insulin Detemir (Levemir) 20 unit SC ACBHS [facility] Last Admin: 05/22/17 07:59 Dose: 20 unit Insulin Human Regular (Novolin R) 0 unit SC ACHS [facility] PRN Reason: Protocol Last Admin: 05/22/17 07:30 Dose: 2 unit Labetalol HCl (Normodyne) 300 mg PO Q12H [facility] Last Admin: 05/22/17 09:35 Dose: 300 mg Lactulose (Enulose) 30 gm PO Q2D [facility] Last Admin: 05/20/17 23:19 Dose: Not Given Latanoprost (Xalatan Opht) 0 ml OU HS [facility] Last Admin: 05/21/17 21:36 Dose: 2.5 ml Methimazole (Tapazole) 5 mg PO QAM [facility] Last Admin: 05/22/17 09:35 Dose: 5 mg Nitroglycerin (Nitro-Dur 0.4 Mg/Hr Patch) 1 patch TD DAILY [facility] Last Admin: 05/22/17 09:35 Dose: 1 patch Pneumococcal Polyvalent Vaccine (Pneumovax 23 Vaccine) 0.5 ml IM .ONCE ONE Stop: 05/23/17 10:01 Rosuvastatin Calcium (Crestor) 10 mg PO DAILY [facility] Last Admin: 05/22/17 09:34 Dose: 10 mg Timolol Maleate (Timoptic 0.5% Oph Soln) 1 drop OU BID [facility] Last Admin: 05/22/17 09:31 Dose: 1 drop - Labs Labs: 05/20/17 21:11 05/20/17 21:11 PT 12.4 SECONDS (9.7-12.2) H 05/20/17 21:11 INR 1.1 05/20/17 21:11 APTT 26 SECONDS (21-34) 05/20/17 21:11 - Constitutional Appears: Non-toxic, No Acute Distress - Head Exam Head Exam: ATRAUMATIC, NORMAL INSPECTION, NORMOCEPHALIC - Eye Exam Eye Exam: EOMI, Normal appearance - ENT Exam ENT Exam: Mucous Membranes Moist, Normal Exam - Neck Exam Neck Exam: Full ROM, Normal Inspection - Respiratory Exam Respiratory Exam: NORMAL BREATHING PATTERN - Cardiovascular Exam Cardiovascular Exam: REGULAR RHYTHM, +S1, +S2 - GI/Abdominal Exam GI & Abdominal Exam: Soft. absent: Distended, Firm, Guarding, Rigid, Tenderness - Extremities Exam Extremities Exam: Tenderness (over distal aspect of RLE) - Neurological Exam Neurological Exam: Alert, Oriented x3 - Psychiatric Exam Psychiatric exam: Normal Affect, Normal Mood - Skin Skin Exam: Dry, Intact, Normal Color, Warm Assessment and Plan - Assessment and Plan (Free Text) Assessment: 87F w/PAD, necrosis of distal RLE, currently stable Plan: Cardiac recs- pre op echo (awaiting official read), ASA Plan for OR on 05/23 NPO after TONIA SARAH attending Lizzie, PGY-1
--- NOTE | 2017-05-22 14:33 | PN ---
DATE: FOLLOWUP SUBJECTIVE: The patient is confused. She does not appear to be in any distress. PHYSICAL EXAMINATION: VITAL SIGNS: Blood pressure 155/85, heart rate 90, temperature 98.3, respirations 20. HEENT: Pale conjunctivae. CHEST: Diminished breath sounds over the bases. HEART: S1 and S2 regular. EXTREMITIES: Dressing is applied to both feet. ASSESSMENT: 1. Peripheral vascular disease. 2. Gangrenous changes of the left lower extremity. 3. Diabetic neuropathy. 4. Questionable history of coronary artery disease. 5. Uncontrolled diabetes mellitus. 6. Hyperthyroidism. RECOMMENDATIONS: Continue aspirin 81 mg once a day, cefazolin 500 mg intravenously q. 8 hours, Crestor 10 mg once a day, Feosol 325 mg daily, Normodyne 300 mg q. 12 hours and nitro paste 0.4 mg daily. I will review with the echocardiography study performed today. Silvestre Zaman MD
[2017-05-22] MEDS: Latanoprost 2.5 ml Opht Soln OU SCH (21:33)
--- NOTE | 2017-05-22 23:07 | CARD ---
APPROVED REPORT EXAM: Two-dimensional and M-mode echocardiogram with Doppler and color Doppler. Other Information Quality : GoodRhythm : INDICATION Pre-Op Congestive Heart Failure cardiac stent RISK FACTORS Hypertension Diabetes 2D DIMENSIONS IVSd1.6 (0.7-1.1cm)LVDd3.5 (3.9-5.9cm) PWd1.6 (0.7-1.1cm)LVDs2.5 (2.5-4.0cm) FS (%) 29.1 %LVEF (%)57.0 (>50%) M-Mode DIMENSIONS RVDd1.84 (2.1-3.2cm)Left Atrium (MM)3.53 (2.5-4.0cm) IVSd1.49 (0.7-1.1cm)Aortic Root2.62 (2.2-3.7cm) LVDd3.89 (4.0-5.6cm)Aortic Cusp Exc.1.80 (1.5-2.0cm) PWd1.49 (0.7-1.1cm)FS (%) 39 % LVDs2.36 (2.0-3.8cm) Aortic Valve AI P 1/2 [id number] Mitral Valve MV E Przfdlcn555.6cm/sMV A Dgsnbvdp592.3cm/sE/A ratio0.6 TDI E/Lateral E'0.0E/Medial E'0.0 Tricuspid Valve TR Peak [id number]/sTR Peak Gr.[id number] LEFT VENTRICLE There is moderate concentric left ventricular hypertrophy. Left ventricle systolic function is normal. The Ejection Fraction is 55-60%. There is normal LV segmental wall motion. The left ventricular diastolic function is abnormal. Transmitral Doppler flow pattern is Grade I-abnormal relaxation pattern. No left ventricle thrombus noted on this study. RIGHT VENTRICLE The right ventricle is normal size. The right ventricular systolic function is normal. ATRIA The left atrium size is normal. The right atrium size is normal. AORTIC VALVE The aortic valve is moderately sclerotic. The aortic valve is trileaflet. There is mild aortic regurgitation. There is no aortic valvular stenosis. There is no aortic valvular vegetation. MITRAL VALVE Mitral annular calcification is moderate. There is no evidence of mitral valve prolapse. There is no mitral valve stenosis. There is no mitral valve regurgitation noted. TRICUSPID VALVE The tricuspid valve is normal in structure. There is trace to mild tricuspid regurgitation. Right ventricular systolic pressure is estimated at less than 30 mmHg. There is no pulmonary hypertension. PULMONIC VALVE The pulmonic valve is not well visualized. There is no pulmonic valvular regurgitation. GREAT VESSELS The aortic root is normal in size. The IVC is normal in size and collapses >50% with inspiration. PERICARDIAL EFFUSION There is no pericardial effusion. There is no pleural effusion. <Conclusion> There is moderate concentric left ventricular hypertrophy. The left ventricular diastolic function is abnormal. The right ventricle is normal size. The right ventricular systolic function is normal. The left atrium size is normal. The right atrium size is normal. There is mild aortic regurgitation. There is trace to mild tricuspid regurgitation.
[2017-05-23 07:34] LABS: INR 1.2
[2017-05-23 07:39] LABS: BASO # 0.1 K/uL (0.0-0.2); BASO % 0.8 % (0.0-2.0); EOS # 0.1 K/uL (0.0-0.7); EOS % 1.2 % (0.0-4.0); HEMOGLOBIN 8.9 g/dL (11.0-16.0); LYMPH # 2.9 K/uL (1.0-4.3); LYMPH % 32.3 % (20.0-40.0); MEAN CELL VOLUME 85.7 fL (81.0-99.0); MEAN CORPUSCULAR HEMOGLOBIN 28.2 pg (27.0-31.0); MEAN CORPUSCULAR HGB CONC 32.8 g/dL (33.0-37.0); MONO # 0.5 K/uL (0.0-0.8); MONO % 5.5 % (0.0-10.0); NEUT # 5.4 K/uL (1.8-7.0); NEUT % 60.2 % (50.0-75.0); NRBC % 0.1 % (0.0-2.0); RBC 3.18 Mil/uL (3.80-5.20); RED CELL DISTRIBUTION WIDTH 15.8 % (11.5-14.5)
[2017-05-23] MEDS: Insulin Detemir 100 units/ml Vial (Levemir) SC SCH ×2 (08:08→22:23)
[2017-05-23] MEDS: (Novolin R) Insulin Human Regular 100 units/ml vial SC SCH ×4 (08:08→22:22)
[2017-05-23] MEDS ORDERED: Influenza Vaccine 60 mcg/0.5 mL SYR (4YR UP) IM ONE (10:00)
[2017-05-23] MEDS ORDERED: Pneumococcal 23-Valent Vaccine IM ONE (10:00)
[2017-05-23] MEDS: methIMAzole 5 MG TAB PO SCH (10:57)
[2017-05-23] MEDS: Labetalol Hydrochloride 300 mg Tab PO SCH (10:57)
[2017-05-23] MEDS: Brimonidine 0.2% Opth Sol (5ml) OU SCH ×2 (10:59→22:21)
[2017-05-23] MEDS: Aritificial Tears (15ml) OU SCH (10:59)
[2017-05-23] MEDS: Nitroglycerin 0.4 mg/hr Top Patch TD SCH (11:00)
[2017-05-23] MEDS: Dorzolamide 2% Opht Sol 10ml OU SCH ×2 (11:00→18:50)
--- NOTE | 2017-05-23 19:24 | PN ---
DATE: SUBJECTIVE: The patient is confused. Does not appear to be in respiratory distress. PHYSICAL EXAMINATION: VITAL SIGNS: Blood pressure 147/80, heart rate 78, temperature 98.1, respirations 20. HEENT: Pale conjunctivae. CHEST: Clear. HEART: S1, S2 regular. EXTREMITIES: Dressing is applied to both feet. LABORATORY DATA: Patient's hemoglobin and hematocrit 8.9 and 27.2, white count and platelet count are within normal limits. Today's SMA-7: Sodium 142, potassium 3.9, chloride 110, CO2 of 26, glucose 127, BUN 23, creatinine 1.1. INR is1.2, PTT is 31. Echocardiographic study revealed moderate concentric LVH with normal systolic function and abnormal diastolic function, mild aortic insufficiency. ASSESSMENT: 1. Peripheral vascular disease, for planned right above-knee amputation. 2. Anemia. 3. Hypertension. 4. Hyperthyroidism. RECOMMENDATIONS: Continue aspirin 81 mg once a day, IV cefazolin 500 mg q. 8 hours, Crestor 10 mg once a day, subcutaneous Lovenox 30 mg once a day, Tapazole at 5 mg once a day. The patient can undergo right above-knee amputation from a cardiac point with monitoring. I did discuss the case with Dr. Reid, the vascular surgeon. However, I attempted to reach a family member at the telephone numbers listed on the information sheet, none of them was answering. Patient is planned for the surgery on Friday. Silvestre Zaman MD
--- NOTE | 2017-05-23 19:48 | CP.PCM.PN ---
Subjective - Date & Time of Evaluation Date of Evaluation: 05/23/17 Time of Evaluation: 07:30 - Subjective Subjective: Vascular surgery progress note for Dr. Reid Patient seen and examined at bedside. No acute event overnight. She is sleeping but arousable to verbal stimuli. RLE tender to palpation. Objective - Vital Signs/Intake and Output Vital Signs (last 24 hours): Temp Pulse Resp BP Pulse Ox 98.2 F 81 20 167/83 H 98 05/23/17 16:00 05/23/17 16:00 05/23/17 16:00 05/23/17 16:00 05/23/17 16:00 Intake and Output: 05/23/17 05/24/17 18:59 06:59 Intake Total 270 Balance 270 - Medications Medications: Current Medications Artificial Tears (Artificial Tears) 0 ml OU DAILY [facility] Last Admin: 05/23/17 10:59 Dose: 1 applic Aspirin (Aspirin Chewable) 81 mg PO DAILY [facility] Last Admin: 05/23/17 10:56 Dose: Not Given Brimonidine Tartrate (Alphagan 0.2% Opht) 0 ml OU Q12 [facility] Last Admin: 05/23/17 10:59 Dose: 1 applic Dorzolamide HCl (Trusopt) 0 ml OU BID [facility] Last Admin: 05/23/17 11:00 Dose: 1 applic Enoxaparin Sodium (Lovenox) 30 mg SC DAILY [facility] Last Admin: 05/22/17 09:35 Dose: 30 mg Famotidine (Pepcid) 20 mg PO DAILY [facility] Last Admin: 05/23/17 10:57 Dose: Not Given Ferrous Sulfate (Feosol) 325 mg PO DAILY [facility] Last Admin: 05/23/17 10:56 Dose: Not Given Cefazolin Sodium 500 mg/ (Sodium Chloride) 50 mls @ 100 mls/hr IVPB Q8H [facility] Last Admin: 05/23/17 14:22 Dose: 100 mls/hr Insulin Detemir (Levemir) 20 unit SC ACBHS [facility] Last Admin: 05/23/17 08:08 Dose: Not Given Insulin Human Regular (Novolin R) 0 unit SC ACHS [facility] PRN Reason: Protocol Last Admin: 05/23/17 12:02 Dose: Not Given Labetalol HCl (Normodyne) 300 mg PO Q12H [facility] Last Admin: 05/23/17 10:57 Dose: Not Given Lactulose (Enulose) 30 gm PO Q2D [facility] Last Admin: 05/22/17 22:01 Dose: 30 gm Latanoprost (Xalatan Opht) 0 ml OU HS [facility] Last Admin: 05/22/17 21:33 Dose: 2.5 ml Methimazole (Tapazole) 5 mg PO QAM [facility] Last Admin: 05/23/17 10:57 Dose: Not Given Nitroglycerin (Nitro-Dur 0.4 Mg/Hr Patch) 1 patch TD DAILY [facility] Last Admin: 05/23/17 11:00 Dose: 1 patch Rosuvastatin Calcium (Crestor) 10 mg PO DAILY [facility] Last Admin: 05/23/17 10:56 Dose: Not Given Timolol Maleate (Timoptic 0.5% Ophth Soln) 1 drop OU BID [facility] Last Admin: 05/23/17 10:59 Dose: 1 drop - Labs Labs: 05/23/17 07:12 05/23/17 07:12 PT 14.0 SECONDS (9.7-12.2) H 05/23/17 07:12 INR 1.2 05/23/17 07:12 APTT 31 SECONDS (21-34) D 05/23/17 07:12 - Constitutional Appears: No Acute Distress - Head Exam Head Exam: ATRAUMATIC, NORMOCEPHALIC - Eye Exam Eye Exam: Normal appearance Pupil Exam: PERRL - Respiratory Exam Respiratory Exam: NORMAL BREATHING PATTERN - Cardiovascular Exam Cardiovascular Exam: REGULAR RHYTHM - GI/Abdominal Exam GI & Abdominal Exam: Soft. absent: Tenderness - Extremities Exam Additional comments: Tender over distal aspect of RLE - Neurological Exam Neurological Exam: Awake - Psychiatric Exam Psychiatric exam: Flat Affect - Skin Skin Exam: Dry, Warm Assessment and Plan - Assessment and Plan (Free Text) Plan: 87F with PAD, necrosis of distal RLE Plan for OR on 05/26 NPO after [place] Friday evening Medical optimization by medicine Discussed with Dr. Franklin Busch PGY1
[2017-05-23] MEDS: Latanoprost 2.5 ml Opht Soln OU SCH (22:22)
--- NOTE | 2017-05-24 01:23 | CP.PCM.PN ---
Subjective - Date & Time of Evaluation Date of Evaluation: 05/24/17 Time of Evaluation: :22 - Subjective Subjective: Vasc Sx: Dr Reid Pt S&E. Remains clinically the same. Arousable but remains unoriented which I' m told is her baseline. Pain in RLE. Denies any other pain. Plan for OR friday. Pt has been cleared by cardiology. Objective - Vital Signs/Intake and Output Vital Signs (last 24 hours): Temp Pulse Resp BP Pulse Ox 98 F 90 20 125/71 96 05/24/17 00:13 05/24/17 00:13 05/24/17 00:13 05/24/17 00:13 05/24/17 00:13 Intake and Output: 05/23/17 05/24/17 18:59 06:59 Intake Total 270 170 Balance 270 170 - Medications Medications: Current Medications Artificial Tears (Artificial Tears) 0 ml OU DAILY [facility] Last Admin: 05/23/17 10:59 Dose: 1 applic Aspirin (Aspirin Chewable) 81 mg PO DAILY [facility] Last Admin: 05/23/17 10:56 Dose: Not Given Brimonidine Tartrate (Alphagan 0.2% Opht) 0 ml OU Q12 [facility] Last Admin: 05/23/17 22:21 Dose: 1 applic Dorzolamide HCl (Trusopt) 0 ml OU BID [facility] Last Admin: 05/23/17 18:50 Dose: 1 drop Enoxaparin Sodium (Lovenox) 30 mg SC DAILY [facility] Last Admin: 05/22/17 09:35 Dose: 30 mg Famotidine (Pepcid) 20 mg PO DAILY [facility] Last Admin: 05/23/17 10:57 Dose: Not Given Ferrous Sulfate (Feosol) 325 mg PO DAILY [facility] Last Admin: 05/23/17 10:56 Dose: Not Given Cefazolin Sodium 500 mg/ (Sodium Chloride) 50 mls @ 100 mls/hr IVPB Q8H [facility] Last Admin: 05/23/17 22:25 Dose: 100 mls/hr Insulin Detemir (Levemir) 20 unit SC ACBHS [facility] Last Admin: 05/23/17 22:23 Dose: Not Given Insulin Human Regular (Novolin R) 0 unit SC [facility] PRN Reason: Protocol Last Admin: 05/23/17 22:22 Dose: Not Given Labetalol HCl (Normodyne) 300 mg PO Q12H [facility] Last Admin: 05/23/17 10:57 Dose: Not Given Lactulose (Enulose) 30 gm PO Q2D [facility] Last Admin: 05/22/17 22:01 Dose: 30 gm Latanoprost (Xalatan Opht) 0 ml OU HS [facility] Last Admin: 05/23/17 22:22 Dose: 2.5 ml Methimazole (Tapazole) 5 mg PO QAM [facility] Last Admin: 05/23/17 10:57 Dose: Not Given Nitroglycerin (Nitro-Dur 0.4 Mg/Hr Patch) 1 patch TD DAILY [facility] Last Admin: 05/23/17 11:00 Dose: 1 patch Rosuvastatin Calcium (Crestor) 10 mg PO DAILY [facility] Last Admin: 05/23/17 10:56 Dose: Not Given Timolol Maleate (Timoptic 0.5% Ophth Soln) 1 drop OU BID [facility] Last Admin: 05/23/17 18:50 Dose: 1 drop - Labs Labs: 05/23/17 07:12 05/23/17 07:12 PT 14.0 SECONDS (9.7-12.2) H 05/23/17 07:12 INR 1.2 05/23/17 07:12 APTT 31 SECONDS (21-34) D 05/23/17 07:12 - Constitutional Appears: Non-toxic - Respiratory Exam Respiratory Exam: absent: Accessory Muscle Use, Respiratory Distress - Cardiovascular Exam Cardiovascular Exam: absent: Tachycardia - GI/Abdominal Exam GI & Abdominal Exam: Soft. absent: Distended, Tenderness - Extremities Exam Additional comments: necrotic distal RLE - Neurological Exam Neurological Exam: Awake. absent: Alert, Oriented x3 - Psychiatric Exam Psychiatric exam: Agitated - Skin Skin Exam: Normal Color Assessment and Plan - Assessment and Plan (Free Text) Assessment: 87F with distal RLE necrosis Plan: plan for OR friday for AKA NPO @ [place] friday hold anticoagulation friday further mgmt per primary team will d/w Dr Franklin Hahn, PGY3
[2017-05-24] MEDS: Insulin Detemir 100 units/ml Vial (Levemir) SC SCH ×2 (08:16→21:51)
[2017-05-24] MEDS: (Novolin R) Insulin Human Regular 100 units/ml vial SC SCH ×5 (08:16→21:52)
[2017-05-24] MEDS: Labetalol Hydrochloride 300 mg Tab PO SCH ×2 (11:21→23:13)
[2017-05-24] MEDS: Nitroglycerin 0.4 mg/hr Top Patch TD SCH (11:21)
[2017-05-24] MEDS: methIMAzole 5 MG TAB PO SCH (11:21)
[2017-05-24] MEDS: Dorzolamide 2% Opht Sol 10ml OU SCH ×2 (11:29→17:30)
[2017-05-24] MEDS: Brimonidine 0.2% Opth Sol (5ml) OU SCH ×2 (11:30→22:02)
[2017-05-24] MEDS: Aritificial Tears (15ml) OU SCH (11:30)
--- NOTE | 2017-05-24 16:38 | CP.PCM.PN ---
Subjective - Date & Time of Evaluation Date of Evaluation: 05/23/17 Time of Evaluation: 20:00 - Subjective Subjective: Patient seen and examined at bedside. No acute event overnight. She is sleeping but arousable to verbal stimuli. RLE tender to palpation. pt is for OR waiting for cardiology clearnce Objective - Vital Signs/Intake and Output Vital Signs (last 24 hours): Temp Pulse Resp BP Pulse Ox 98.4 F 82 20 139/79 95 05/24/17 16:00 05/24/17 16:00 05/24/17 16:00 05/24/17 16:00 05/24/17 16:00 Intake and Output: 05/24/17 05/24/17 06:59 18:59 Intake Total 170 100 Balance 170 100 - Medications Medications: Current Medications Artificial Tears (Artificial Tears) 0 ml OU DAILY [facility] Last Admin: 05/24/17 11:30 Dose: 1 applic Aspirin (Aspirin Chewable) 81 mg PO DAILY [facility] Last Admin: 05/24/17 11:29 Dose: 81 mg Brimonidine Tartrate (Alphagan 0.2% Opht) 0 ml OU Q12 [facility] Last Admin: 05/24/17 11:30 Dose: 1 applic Dorzolamide HCl (Trusopt) 0 ml OU BID [facility] Last Admin: 05/24/17 11:29 Dose: 1 drop Enoxaparin Sodium (Lovenox) 30 mg SC DAILY [facility] Last Admin: 05/22/17 09:35 Dose: 30 mg Famotidine (Pepcid) 20 mg PO DAILY [facility] Last Admin: 05/24/17 11:22 Dose: 20 mg Ferrous Sulfate (Feosol) 325 mg PO DAILY [facility] Last Admin: 05/24/17 11:22 Dose: 325 mg Cefazolin Sodium 500 mg/ (Sodium Chloride) 50 mls @ 100 mls/hr IVPB Q8H [facility] Last Admin: 05/24/17 14:21 Dose: 100 mls/hr Insulin Detemir (Levemir) 20 unit SC ACBHS [facility] Last Admin: 05/24/17 08:16 Dose: Not Given Insulin Human Regular (Novolin R) 0 unit SC ACHS [facility] PRN Reason: Protocol Last Admin: 05/24/17 12:32 Dose: 1 unit Labetalol HCl (Normodyne) 300 mg PO Q12H [facility] Last Admin: 05/24/17 11:21 Dose: 300 mg Lactulose (Enulose) 30 gm PO Q2D [facility] Last Admin: 05/22/17 22:01 Dose: 30 gm Latanoprost (Xalatan Opht) 0 ml OU HS [facility] Last Admin: 05/23/17 22:22 Dose: 2.5 ml Methimazole (Tapazole) 5 mg PO QAM [facility] Last Admin: 05/24/17 11:21 Dose: 5 mg Nitroglycerin (Nitro-Dur 0.4 Mg/Hr Patch) 1 patch TD DAILY [facility] Last Admin: 05/24/17 11:21 Dose: 1 patch Rosuvastatin Calcium (Crestor) 10 mg PO DAILY [facility] Last Admin: 05/24/17 11:22 Dose: 10 mg Timolol Maleate (Timoptic 0.5% Oph Soln) 1 drop OU BID [facility] Last Admin: 05/24/17 11:29 Dose: 1 drop - Labs Labs: 05/23/17 07:12 05/23/17 07:12 PT 14.0 SECONDS (9.7-12.2) H 05/23/17 07:12 INR 1.2 05/23/17 07:12 APTT 31 SECONDS (21-34) D 05/23/17 07:12 - Constitutional Appears: No Acute Distress - Head Exam Head Exam: ATRAUMATIC, NORMAL INSPECTION, NORMOCEPHALIC - Eye Exam Eye Exam: EOMI, Normal appearance, PERRL Pupil Exam: NORMAL ACCOMODATION, PERRL - Cardiovascular Exam Cardiovascular Exam: REGULAR RHYTHM, +S1, +S2. absent: Murmur - GI/Abdominal Exam GI & Abdominal Exam: Soft, Normal Bowel Sounds. 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
--- NOTE | 2017-05-24 16:40 | CP.PCM.PN ---
Subjective - Date & Time of Evaluation Date of Evaluation: 05/24/17 Time of Evaluation: 19:00 - Subjective Subjective: 87F w/PAD,seen and evalauted today, necrosis of distal RLE, currently stable Plan for OR friday. Pt has been cleared by cardiology Objective - Vital Signs/Intake and Output Vital Signs (last 24 hours): Temp Pulse Resp BP Pulse Ox 98.4 F 82 20 139/79 95 05/24/17 16:00 05/24/17 16:00 05/24/17 16:00 05/24/17 16:00 05/24/17 16:00 Intake and Output: 05/24/17 05/24/17 06:59 18:59 Intake Total 170 100 Balance 170 100 - Medications Medications: Current Medications Artificial Tears (Artificial Tears) 0 ml OU DAILY [facility] Last Admin: 05/24/17 11:30 Dose: 1 applic Aspirin (Aspirin Chewable) 81 mg PO DAILY [facility] Last Admin: 05/24/17 11:29 Dose: 81 mg Brimonidine Tartrate (Alphagan 0.2% Opht) 0 ml OU Q12 [facility] Last Admin: 05/24/17 11:30 Dose: 1 applic Dorzolamide HCl (Trusopt) 0 ml OU BID [facility] Last Admin: 05/24/17 11:29 Dose: 1 drop Enoxaparin Sodium (Lovenox) 30 mg SC DAILY [facility] Last Admin: 05/22/17 09:35 Dose: 30 mg Famotidine (Pepcid) 20 mg PO DAILY [facility] Last Admin: 05/24/17 11:22 Dose: 20 mg Ferrous Sulfate (Feosol) 325 mg PO DAILY [facility] Last Admin: 05/24/17 11:22 Dose: 325 mg Cefazolin Sodium 500 mg/ (Sodium Chloride) 50 mls @ 100 mls/hr IVPB Q8H [facility] Last Admin: 05/24/17 14:21 Dose: 100 mls/hr Insulin Detemir (Levemir) 20 unit SC ACBHS [facility] Last Admin: 05/24/17 08:16 Dose: Not Given Insulin Human Regular (Novolin R) 0 unit SC ACHS [facility] PRN Reason: Protocol Last Admin: 05/24/17 12:32 Dose: 1 unit Labetalol HCl (Normodyne) 300 mg PO Q12H [facility] Last Admin: 05/24/17 11:21 Dose: 300 mg Lactulose (Enulose) 30 gm PO Q2D [facility] Last Admin: 05/22/17 22:01 Dose: 30 gm Latanoprost (Xalatan Opht) 0 ml OU HS [facility] Last Admin: 05/23/17 22:22 Dose: 2.5 ml Methimazole (Tapazole) 5 mg PO QAM [facility] Last Admin: 05/24/17 11:21 Dose: 5 mg Nitroglycerin (Nitro-Dur 0.4 Mg/Hr Patch) 1 patch TD DAILY [facility] Last Admin: 05/24/17 11:21 Dose: 1 patch Rosuvastatin Calcium (Crestor) 10 mg PO DAILY [facility] Last Admin: 05/24/17 11:22 Dose: 10 mg Timolol Maleate (Timoptic 0.5% [facility]) 1 drop OU BID [facility] Last Admin: 05/24/17 11:29 Dose: 1 drop - Labs Labs: 05/23/17 07:12 05/23/17 07:12 PT 14.0 SECONDS (9.7-12.2) H 05/23/17 07:12 INR 1.2 05/23/17 07:12 APTT 31 SECONDS (21-34) D 05/23/17 07:12 Assessment and Plan (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
[2017-05-24] MEDS: Latanoprost 2.5 ml Opht Soln OU SCH (21:49)
[2017-05-25 08:23] LABS: BASO # 0.1 K/uL (0.0-0.2); BASO % 1.4 % (0.0-2.0); EOS # 0.1 K/uL (0.0-0.7); HEMOGLOBIN 9.1 g/dL (11.0-16.0); LYMPH # 2.3 K/uL (1.0-4.3); MEAN CELL VOLUME 85.8 fL (81.0-99.0); MEAN CORPUSCULAR HEMOGLOBIN 26.7 pg (27.0-31.0); MEAN CORPUSCULAR HGB CONC 31.1 g/dL (33.0-37.0); MEAN PLATELET VOLUME 8.5 fL (7.2-11.7); MONO # 0.7 K/uL (0.0-0.8); MONO % 7.1 % (0.0-10.0); NEUT # 6.3 K/uL (1.8-7.0); NEUT % 66.5 % (50.0-75.0); NRBC % 0.1 % (0.0-2.0); RBC 3.4 Mil/uL (3.80-5.20); RED CELL DISTRIBUTION WIDTH 15.9 % (11.5-14.5); WHITE BLOOD COUNT 9.4 K/uL (4.8-10.8)
[2017-05-25 08:37] LABS: CALCIUM 8.7 mg/dl (8.6-10.4)
[2017-05-25] MEDS: (Novolin R) Insulin Human Regular 100 units/ml vial SC SCH ×4 (09:00→22:15)
[2017-05-25] MEDS: Insulin Detemir 100 units/ml Vial (Levemir) SC SCH ×3 (09:01→22:19)
[2017-05-25] MEDS: Brimonidine 0.2% Opth Sol (5ml) OU SCH ×2 (10:01→22:16)
[2017-05-25] MEDS: Dorzolamide 2% Opht Sol 10ml OU SCH ×2 (10:01→18:02)
[2017-05-25] MEDS: Nitroglycerin 0.4 mg/hr Top Patch TD SCH (10:02)
[2017-05-25] MEDS: Aritificial Tears (15ml) OU SCH (10:02)
[2017-05-25] MEDS: Labetalol Hydrochloride 300 mg Tab PO SCH ×2 (10:03→23:05)
[2017-05-25] MEDS: methIMAzole 5 MG TAB PO SCH (10:04)
--- NOTE | 2017-05-25 11:47 | CP.PCM.PN ---
Subjective - Date & Time of Evaluation Date of Evaluation: 05/25/17 Time of Evaluation: 08:45 - Subjective Subjective: Vascular surgery progress note for Dr. Dennise Samuel, PGY-1 Pt S & E at bedside. Pt resting comfortably in bed. Denies N & V, F & C, numbness or tingling of extremities, pain in extremities. No complaints at this time. Objective - Vital Signs/Intake and Output Vital Signs (last 24 hours): Temp Pulse Resp BP Pulse Ox 98.5 F 83 20 168/78 H 94 L 05/25/17 08:36 05/25/17 08:36 05/25/17 08:36 05/25/17 08:36 05/25/17 08:36 Intake and Output: 05/25/17 05/25/17 06:59 18:59 Intake Total 700 Balance 700 - Medications Medications: Current Medications Artificial Tears (Artificial Tears) 0 ml OU DAILY [facility] Last Admin: 05/25/17 10:02 Dose: 1 drop Aspirin (Aspirin Chewable) 81 mg PO DAILY [facility] Last Admin: 05/25/17 10:04 Dose: 81 mg Brimonidine Tartrate (Alphagan 0.2% Opht) 0 ml OU Q12 [facility] Last Admin: 05/25/17 10:01 Dose: 1 applic Dorzolamide HCl (Trusopt) 0 ml OU BID [facility] Last Admin: 05/25/17 10:01 Dose: 1 drop Enoxaparin Sodium (Lovenox) 30 mg SC DAILY [facility] Last Admin: 05/22/17 09:35 Dose: 30 mg Famotidine (Pepcid) 20 mg PO DAILY [facility] Last Admin: 05/25/17 10:03 Dose: 20 mg Ferrous Sulfate (Feosol) 325 mg PO DAILY [facility] Last Admin: 05/25/17 10:03 Dose: 325 mg Cefazolin Sodium 500 mg/ (Sodium Chloride) 100 mls @ 200 mls/hr IVPB Q8H [facility] Last Admin: 05/25/17 07:00 Dose: 200 mls/hr Insulin Detemir (Levemir) 20 unit SC ACBHS [facility] Last Admin: 05/25/17 09:01 Dose: 20 unit Insulin Human Regular (Novolin R) 0 unit SC ACHS [facility] PRN Reason: Protocol Last Admin: 05/25/17 09:00 Dose: 3 unit Labetalol HCl (Normodyne) 300 mg PO Q12H [facility] Last Admin: 05/25/17 10:03 Dose: 300 mg Lactulose (Enulose) 30 gm PO Q2D [facility] Last Admin: 05/24/17 21:50 Dose: 30 gm Latanoprost (Xalatan Opht) 0 ml OU HS [facility] Last Admin: 05/24/17 21:49 Dose: 1 ml Methimazole (Tapazole) 5 mg PO QAM [facility] Last Admin: 05/25/17 10:04 Dose: 5 mg Nitroglycerin (Nitro-Dur 0.4 Mg/Hr Patch) 1 patch TD DAILY [facility] Last Admin: 05/25/17 10:02 Dose: 1 patch Rosuvastatin Calcium (Crestor) 10 mg PO DAILY [facility] Last Admin: 05/25/17 10:10 Dose: 10 mg Timolol Maleate (Timoptic 0.5% Ophth Soln) 1 drop OU BID [facility] Last Admin: 05/25/17 10:04 Dose: 1 drop - Labs Labs: 05/25/17 08:16 05/25/17 08:16 PT 14.0 SECONDS (9.7-12.2) H 05/23/17 07:12 INR 1.2 05/23/17 07:12 APTT 31 SECONDS (21-34) D 05/23/17 07:12 - Constitutional Appears: Non-toxic, No Acute Distress - Head Exam Head Exam: ATRAUMATIC, NORMAL INSPECTION, NORMOCEPHALIC - Eye Exam Eye Exam: EOMI, Normal appearance - ENT Exam ENT Exam: Mucous Membranes Moist, Normal Exam - Neck Exam Neck Exam: Full ROM, Normal Inspection - Respiratory Exam Respiratory Exam: NORMAL BREATHING PATTERN - Cardiovascular Exam Cardiovascular Exam: REGULAR RHYTHM, +S1, +S2 - GI/Abdominal Exam GI & Abdominal Exam: Soft. absent: Firm, Guarding, Rigid, Tenderness - Extremities Exam Extremities Exam: absent: Normal Inspection (Right LE with dressing in place, clean/dry/intact), Tenderness - Neurological Exam Neurological Exam: Awake - Psychiatric Exam Psychiatric exam: Normal Affect, Normal Mood - Skin Skin Exam: Dry, Intact, Normal Color, Warm Assessment and Plan - Assessment and Plan (Free Text) Assessment: 87F w/distal RLE necrosis Plan: Plan for OR Friday for AKA NPO after MN Anti-coagulation held today Will obtain consent Further mgmt as per primary team DW Dr. Franklin Samuel, PGY-1
--- NOTE | 2017-05-25 17:42 | PN ---
DATE: SUBJECTIVE: The patient denies chest pain and she appears comfortable, not in any respiratory distress. PHYSICAL EXAMINATION: VITAL SIGNS: Blood pressure 168/78, heart rate 83, temperature 98.5, and respirations 20. HEENT: Pale conjunctivae. CHEST: Clear. HEART: S1 and S2, regular. EXTREMITIES: Dressings applied to the left foot. LABORATORY DATA: Hemoglobin and hematocrit 9.1 and 29.2, white count and platelet count are within normal limit. Today's SMA-7: Sodium 144, potassium 3.9, chloride 111, CO2 of 26, glucose 00:33 185, BUN 24, and creatinine 1.1. ASSESSMENT: 1. Gangrenous right foot. 2. History of cerebrovascular accident with residual left hemiplegia. 3. Anemia. 4. Uncontrolled diabetes mellitus. 5. Hyperthyroidism. RECOMMENDATIONS: Continue current Tapazole, labetalol, Crestor, Feosol, and IV cefazolin. The patient can undergo right above-knee amputation tomorrow 01:23 postoperative ICU or telemetry monitoring depending upon the outcome. Silvestre Zaman MD
--- NOTE | 2017-05-25 20:57 | CP.PCM.PN ---
Subjective - Date & Time of Evaluation Date of Evaluation: 05/25/17 Time of Evaluation: 19:45 - Subjective Subjective: Pt seen and evaluated at bedside pt is afberile, B.P is normal, blood sugars are fluctuating but under control Objective - Vital Signs/Intake and Output Vital Signs (last 24 hours): Temp Pulse Resp BP Pulse Ox 98.7 F 82 20 142/80 96 05/25/17 16:00 05/25/17 16:00 05/25/17 16:00 05/25/17 16:00 05/25/17 16:00 Intake and Output: 05/25/17 05/26/17 18:59 06:59 Intake Total 400 Balance 400 - Medications Medications: Current Medications Artificial Tears (Artificial Tears) 0 ml OU DAILY [facility] Last Admin: 05/25/17 10:02 Dose: 1 drop Aspirin (Aspirin Chewable) 81 mg PO DAILY [facility] Last Admin: 05/25/17 10:04 Dose: 81 mg Brimonidine Tartrate (Alphagan 0.2% Opht) 0 ml OU Q12 [facility] Last Admin: 05/25/17 10:01 Dose: 1 applic Dorzolamide HCl (Trusopt) 0 ml OU BID [facility] Last Admin: 05/25/17 18:02 Dose: 1 drop Enoxaparin Sodium (Lovenox) 30 mg SC DAILY [facility] Last Admin: 05/22/17 09:35 Dose: 30 mg Famotidine (Pepcid) 20 mg PO DAILY [facility] Last Admin: 05/25/17 10:03 Dose: 20 mg Ferrous Sulfate (Feosol) 325 mg PO DAILY [facility] Last Admin: 05/25/17 10:03 Dose: 325 mg Cefazolin Sodium 500 mg/ (Sodium Chloride) 100 mls @ 200 mls/hr IVPB Q8H [facility] Last Admin: 05/25/17 14:04 Dose: 200 mls/hr Insulin Detemir (Levemir) 20 unit SC ACBHS [facility] Last Admin: 05/25/17 09:01 Dose: 20 unit Insulin Human Regular (Novolin R) 0 unit SC ACHS [facility] PRN Reason: Protocol Last Admin: 05/25/17 17:12 Dose: 6 unit Labetalol HCl (Normodyne) 300 mg PO Q12H [facility] Last Admin: 05/25/17 10:03 Dose: 300 mg Lactulose (Enulose) 30 gm PO Q2D [facility] Last Admin: 05/24/17 21:50 Dose: 30 gm Latanoprost (Xalatan Opht) 0 ml OU HS [facility] Last Admin: 05/24/17 21:49 Dose: 1 ml Methimazole (Tapazole) 5 mg PO QAM [facility] Last Admin: 05/25/17 10:04 Dose: 5 mg Nitroglycerin (Nitro-Dur 0.4 Mg/Hr Patch) 1 patch TD DAILY [facility] Last Admin: 05/25/17 10:02 Dose: 1 patch Rosuvastatin Calcium (Crestor) 10 mg PO DAILY [facility] Last Admin: 05/25/17 10:10 Dose: 10 mg Timolol Maleate (Timoptic 0.5% Ophth Soln) 1 drop OU BID [facility] Last Admin: 05/25/17 18:01 Dose: 1 drop - Labs Labs: 05/25/17 08:16 05/25/17 08:16 PT 14.0 SECONDS (9.7-12.2) H 05/23/17 07:12 INR 1.2 05/23/17 07:12 APTT 31 SECONDS (21-34) D 05/23/17 07:12 - Constitutional Appears: No Acute Distress - Head Exam Head Exam: ATRAUMATIC, NORMAL INSPECTION, NORMOCEPHALIC - Eye Exam Eye Exam: EOMI, Normal appearance, PERRL Pupil Exam: NORMAL ACCOMODATION, PERRL - Cardiovascular Exam Cardiovascular Exam: REGULAR RHYTHM, +S1, +S2. absent: Murmur - GI/Abdominal Exam GI & Abdominal Exam: Soft, Normal Bowel Sounds. absent: Tenderness Assessment and Plan (1) Gangrene associated with type 2 diabetes mellitus Status: Acute (2) Diabetic nephropathy Status: Acute (3) Diabetic retinopathy Status: Acute (4) Diabetes mellitus Status: Acute (5) Foot infection Assessment & Plan: for Or tomorow BKA Status: Acute
[2017-05-25] MEDS: Latanoprost 2.5 ml Opht Soln OU SCH (22:18)
[2017-05-26] MEDS: Labetalol Hydrochloride 300 mg Tab PO SCH ×2 (00:51→10:38)
[2017-05-26] MEDS: (Novolin R) Insulin Human Regular 100 units/ml vial SC SCH ×3 (07:50→23:28)
[2017-05-26] MEDS: Insulin Detemir 100 units/ml Vial (Levemir) SC SCH ×2 (07:50→23:28)
--- NOTE | 2017-05-26 08:03 | PN ---
DATE: SUBJECTIVE: Patient is lethargic and sleepy, but does not appear to be in respiratory distress. PHYSICAL EXAMINATION: VITAL SIGNS: Blood pressure 155/83, heart rate 80, temperature 98.1, respirations 20. HEENT: Pale conjunctivae. CHEST: Clear. HEART: S1, S2 regular. EXTREMITIES: Dressing is applied to the left and right foot. LABORATORY DATA: Today's blood sugars are 149 and 187. ASSESSMENT: 1. Gangrenous right foot changes. 2. Uncontrolled diabetes mellitus. 3. Peripheral vascular disease, status post stenting in the past. 4. Anemia. 5. Hyperthyroidism. 6. Hypertension. RECOMMENDATIONS: Continue aspirin 81 mg once a day, IV cefazolin 500 mg intravenous q. 8 hours, Crestor 10 mg once a day, Feosol 325 mg once a day, labetalol at 300 mg twice a day, Tapazole at 5 mg once a day. The plan is for the patient to undergo right above-knee amputation on Friday. Silvestre Zaman MD
[2017-05-26 08:34] LABS: BASO % 0.5 % (0.0-2.0); EOS # 0.1 K/uL (0.0-0.7); EOS % 1.5 % (0.0-4.0); HEMOGLOBIN 9.1 g/dL (11.0-16.0); LYMPH # 2.8 K/uL (1.0-4.3); LYMPH % 30.2 % (20.0-40.0); MEAN CELL VOLUME 85.6 fL (81.0-99.0); MEAN CORPUSCULAR HEMOGLOBIN 27.4 pg (27.0-31.0); MEAN PLATELET VOLUME 9.1 fL (7.2-11.7); MONO # 0.7 K/uL (0.0-0.8); MONO % 7.9 % (0.0-10.0); NEUT # 5.5 K/uL (1.8-7.0); NEUT % 59.9 % (50.0-75.0); NRBC % 0.1 % (0.0-2.0); RBC 3.32 Mil/uL (3.80-5.20); WHITE BLOOD COUNT 9.3 K/uL (4.8-10.8)
[2017-05-26 08:40] LABS: INR 1.3
[2017-05-26 08:48] LABS: ALB/GLOB RATIO 0.8 (1.0-2.1); ALBUMIN 3.4 g/dL (3.5-5.0); ALT/SGPT < 6 U/L (9-52); AST/SGOT 19 U/L (14-36); BLOOD UREA NITROGEN 24 mg/dL (7-17); GFR AFRICAN-AMERICAN 57; GFR NON-AFRICAN AMERICAN 47
[2017-05-26] MEDS: Nitroglycerin 0.4 mg/hr Top Patch TD SCH (10:38)
[2017-05-26] MEDS: methIMAzole 5 MG TAB PO SCH (10:38)
[2017-05-26] MEDS: Dorzolamide 2% Opht Sol 10ml OU SCH ×2 (10:40→22:28)
[2017-05-26] MEDS: Brimonidine 0.2% Opth Sol (5ml) OU SCH ×2 (10:40→22:29)
[2017-05-26] MEDS: Aritificial Tears (15ml) OU SCH (10:41)
[2017-05-26] MEDS: Dextrose 5%/0.45% NS 1,000 ML IV SCH (10:46)
[2017-05-26] MEDS ORDERED: Lactated Ringer's 1,000 ML IV ONE ×2 (12:30→13:30)
[2017-05-26] MEDS ORDERED: Propofol 10 mg/ml Inj (20 ML) ONE (12:33)
[2017-05-26] MEDS ORDERED: Vasopressin 20 Units/ml Inj ONE (12:56)
--- NOTE | 2017-05-26 14:15 | OP ---
PROCEDURE DATE: 05/26/2017 PREOPERATIVE DIAGNOSIS: Gangrene of right foot. PROCEDURE CARRIED OUT: Right above-knee amputation. SURGEON: Stephen Reid Jr., MD. MOTOR MAN: Dr. Busch and Dr. Maldonado. TYPE OF ANESTHESIA: General anesthesia. ANESTHESIA ADMINISTERED BY: Rafael. INDICATIONS: An 87-year-old woman, gangrene in the right heel established. OPERATIVE FINDINGS: Standard right above-knee amputation was carried out. There was adequate bleeding from the cut muscle. DESCRIPTION OF PROCEDURE: The patient was given general anesthesia and intravenous antibiotics. A standard above-knee amputation was carried out. After this had been completed, we then closed the wound with Monocryl and Vicryl sutures and closed the skin with skin clips and nylon sutures. Blood loss for procedure 500 mL. A noncompressive dressing applied. Operation carried out, right above-knee amputation. Stephen Reid Jr., MD
[2017-05-26] MEDS ORDERED: Morphine 4 MG/ML VIAL IVP PRN (14:21)
--- NOTE | 2017-05-26 14:23 | PCM.SURG1 ---
Surgeon's Initial Post Op Note - Surgeon's Notes Surgeon: Dr. Reid Dam Operator: Dr. Maldonado PGY2, Dr. Busch Type of Anesthesia: General Endo Pre-Operative Diagnosis: PAD, Osteomylitis Operative Findings: See operative dictation Post-Operative Diagnosis: PAD, Osteomylitis Operation Performed: Above knee amputation right foot Specimen/Specimens Removed: Right foot Estimated Blood Loss: EBL {In ML}: 500 Blood Products Given: N/A Drains Used: No Drains Post-Op Condition: Fair Date of Surgery/Procedure: 05/26/17 Time of Surgery/Procedure: 14:22
[2017-05-26 14:25] LABS: HEMOGLOBIN 7.1 g/dL (11.0-16.0)
[2017-05-26] MEDS ORDERED: Sodium Chloride 0.9% 1,000 ML IV ONE (15:30)
--- NOTE | 2017-05-26 15:36 | PN ---
DATE: FOLLOWUP SUBJECTIVE: The patient is currently in the recovery room. She underwent right above-knee amputation. No reported hypertension or ventricular tachycardia. No shortness of breath and no apparent distress. PHYSICAL EXAMINATION: VITAL SIGNS: Blood pressure 156/61, heart rate 92, temperature 96, respirations 10. HEENT: Pale conjunctivae. CHEST: Diminished breath sounds over the bases. HEART: S1 and S2 regular. EXTREMITIES: No bleeding from the surgical stump. LABORATORY DATA: Postoperative hemoglobin and hematocrit 7.1 and 23.0 with drop of 2 grams. SMA-7 this morning: Sodium 143, potassium 3.9, chloride 110, CO2 of 30, glucose 100, BUN 24, creatinine 1.1. ASSESSMENT: 1. Status post right above-knee amputation. 2. Anemia. 3. Hypertension. RECOMMENDATIONS: Admit the patient to telemetry. Resume aspirin 81 mg once a day, Normodyne at 300 mg twice a day, Tapazole 5 mg daily. The patient will receive 2 units of packed RBC transfusion. Monitor for any signs of volume overload. In the meantime, a routine postoperative EKG. Silvestre Zaman MD
[2017-05-26] MEDS: Latanoprost 2.5 ml Opht Soln OU SCH (22:29)
--- NOTE | 2017-05-26 22:30 | CP.PCM.PN ---
Subjective - Date & Time of Evaluation Date of Evaluation: 05/26/17 Time of Evaluation: 19:00 - Subjective Subjective: Pt seen & evalauted s/p right BKA, pt is afberile, B.P is normal, blood sugars are fluctuating but under control Objective - Vital Signs/Intake and Output Vital Signs (last 24 hours): Temp Pulse Resp BP Pulse Ox 98 F 98 H 18 143/77 100 05/26/17 21:30 05/26/17 21:30 05/26/17 21:30 05/26/17 21:30 05/26/17 21:30 Intake and Output: 05/26/17 05/27/17 18:59 06:59 Intake Total 25 Balance 25 - Medications Medications: Current Medications Artificial Tears (Artificial Tears) 0 ml OU DAILY [facility] Last Admin: 05/26/17 10:41 Dose: 1 drop Aspirin (Aspirin Chewable) 81 mg PO DAILY [facility] Last Admin: 05/26/17 10:37 Dose: 81 mg Brimonidine Tartrate (Alphagan 0.2% Opht) 0 ml OU Q12 [facility] Last Admin: 05/26/17 10:40 Dose: 1 drop Dorzolamide HCl (Trusopt) 0 ml OU BID [facility] Last Admin: 05/26/17 10:40 Dose: 1 drop Enoxaparin Sodium (Lovenox) 30 mg SC DAILY [facility] Last Admin: 05/22/17 09:35 Dose: 30 mg Famotidine (Pepcid) 20 mg PO DAILY [facility] Last Admin: 05/26/17 10:37 Dose: 20 mg Ferrous Sulfate (Feosol) 325 mg PO DAILY [facility] Last Admin: 05/26/17 10:38 Dose: 325 mg Hydromorphone HCl (Dilaudid) 2 mg IVP Q4H PRN PRN Reason: Pain, moderate (4-7) Last Admin: 05/26/17 17:00 Dose: 2 mg Cefazolin Sodium 500 mg/ (Sodium Chloride) 100 mls @ 200 mls/hr IVPB Q8H [facility] Last Admin: 05/26/17 16:08 Dose: Not Given Dextrose/Sodium Chloride (Dextrose 5%/0.45% Ns 1000 Ml) 1,000 mls @ 70 mls/hr IV .[id number] [facility] Last Admin: 05/26/17 10:46 Dose: 70 mls/hr Lactated Ringer's (Lactated Ringer's) 1,000 mls @ 100 mls/hr IV .Q10H [facility] Insulin Detemir (Levemir) 20 unit SC ACBHS [facility] Last Admin: 05/26/17 07:50 Dose: Not Given Insulin Human Regular (Novolin R) 0 unit SC ACHS [facility] PRN Reason: Protocol Last Admin: 05/26/17 12:10 Dose: Not Given Labetalol HCl (Trandate) 200 mg PO Q12H [facility] Lactulose (Enulose) 30 gm PO Q2D [facility] Last Admin: 05/24/17 21:50 Dose: 30 gm Latanoprost (Xalatan Opht) 0 ml OU HS [facility] Last Admin: 05/25/17 22:18 Dose: 2.5 ml Methimazole (Tapazole) 5 mg PO QAM [facility] Last Admin: 05/26/17 10:38 Dose: 5 mg Nitroglycerin (Nitro-Dur 0.4 Mg/Hr Patch) 1 patch TD DAILY [facility] Last Admin: 05/26/17 10:38 Dose: 1 patch Rosuvastatin Calcium (Crestor) 10 mg PO DAILY [facility] Last Admin: 05/26/17 10:37 Dose: 10 mg Timolol Maleate (Timoptic 0.5% Oph Soln) 1 drop OU BID [facility] Last Admin: 05/26/17 10:40 Dose: 1 drop - Labs Labs: 05/26/17 14:20 05/26/17 08:18 PT 15.0 SECONDS (9.7-12.2) H 05/26/17 08:18 INR 1.3 05/26/17 08:18 APTT 30 SECONDS (21-34) 05/26/17 08:18 - Constitutional Appears: No Acute Distress - Head Exam Head Exam: ATRAUMATIC, NORMAL INSPECTION, NORMOCEPHALIC - Eye Exam Eye Exam: EOMI, Normal appearance, PERRL Pupil Exam: NORMAL ACCOMODATION, PERRL - Respiratory Exam Respiratory Exam: Clear to Ausculation Bilateral, NORMAL BREATHING PATTERN - Cardiovascular Exam Cardiovascular Exam: REGULAR RHYTHM, +S1, +S2. absent: Murmur - GI/Abdominal Exam GI & Abdominal Exam: Soft, Normal Bowel Sounds. absent: Tenderness - Rectal Exam Rectal Exam: Deferred Assessment and Plan (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
[2017-05-26] MEDS: Lactated Ringer's 1,000 ML IV SCH (23:29)
[2017-05-26 23:56] LABS: HEPATITIS B SURFACE AG Negative (NEGATIVE)
[2017-05-27 00:02] LABS: HEPATITIS A IGM NEGATIVE (NEGATIVE); HEPATITIS B CORE AB NEGATIVE (NEGATIVE)
[2017-05-27] MEDS: Lactated Ringer's 1,000 ML IV SCH ×2 (00:38→11:18)
[2017-05-27] MEDS: Dextrose 5%/0.45% NS 1,000 ML IV SCH ×2 (00:39→11:11)
[2017-05-27 07:21] LABS: BASO # 0.1 K/uL (0.0-0.2); BASO % 0.6 % (0.0-2.0); EOS # 0.1 K/uL (0.0-0.7); EOS % 0.6 % (0.0-4.0); LYMPH # 2.1 K/uL (1.0-4.3); LYMPH % 12.4 % (20.0-40.0); MEAN CELL VOLUME 85.5 fL (81.0-99.0); MEAN CORPUSCULAR HEMOGLOBIN 27.5 pg (27.0-31.0); MEAN CORPUSCULAR HGB CONC 32.2 g/dL (33.0-37.0); MEAN PLATELET VOLUME 8.8 fL (7.2-11.7); MONO # 0.9 K/uL (0.0-0.8); MONO % 5.6 % (0.0-10.0); NEUT # 13.6 K/uL (1.8-7.0); NEUT % 80.8 % (50.0-75.0); NRBC % 0.1 % (0.0-2.0); RBC 3.7 Mil/uL (3.80-5.20); RED CELL DISTRIBUTION WIDTH 16.1 % (11.5-14.5)
[2017-05-27 07:23] LABS: HEMOGLOBIN 10.2 g/dL (11.0-16.0); WHITE BLOOD COUNT 16.9 K/uL (4.8-10.8)
[2017-05-27 07:43] LABS: BLOOD UREA NITROGEN 22 mg/dL (7-17); GFR AFRICAN-AMERICAN > 60; GFR NON-AFRICAN AMERICAN 52
[2017-05-27] MEDS: Insulin Detemir 100 units/ml Vial (Levemir) SC SCH ×2 (08:06→22:53)
[2017-05-27] MEDS: (Novolin R) Insulin Human Regular 100 units/ml vial SC SCH ×4 (08:06→22:55)
[2017-05-27 09:10] LABS: HEPATITIS C ANTIBODY REACTIVE (NEGATIVE)
[2017-05-27] MEDS: Nitroglycerin 0.4 mg/hr Top Patch TD SCH (10:18)
[2017-05-27] MEDS: methIMAzole 5 MG TAB PO SCH (10:18)
[2017-05-27] MEDS: Aritificial Tears (15ml) OU SCH (10:19)
[2017-05-27] MEDS: Dorzolamide 2% Opht Sol 10ml OU SCH ×2 (10:20→18:24)
[2017-05-27] MEDS: Brimonidine 0.2% Opth Sol (5ml) OU SCH ×2 (10:20→22:54)
[2017-05-27] MEDS ORDERED: Oxycodone/Acetaminophen 5/325 mg Tab PO PRN (12:48)
--- NOTE | 2017-05-27 15:31 | PN ---
DATE: FOLLOWUP SUBJECTIVE: The patient appears comfortable. No reports of ventricular arrhythmia. PHYSICAL EXAMINATION: VITAL SIGNS: Blood pressure 138/68, heart rate 106, temperature 99.4, respirations 20. HEENT: Pale conjunctivae. CHEST: Clear. HEART: S1 and S2 regular. EXTREMITIES: Right above-knee amputation. No bleeding. LABORATORY DATA: Today's hemoglobin and hematocrit 10.2 and 31.7, white count 16.9, platelet count 138,000. SMA-7: Sodium 143, potassium 4.4, chloride 111, CO2 of 26, glucose 104, BUN 22, creatinine 1.0. Postoperative EKG yesterday revealed sinus tachycardia at rate of 111 with nonspecific T-wave abnormality. ASSESSMENT: 1. Status post right above-knee amputation. 2. Hypertension. 3. Uncontrolled diabetes mellitus. 4. Anemia, status post 2 units of packed RBC transfusion. 5. Hyperthyroidism. 6. History of cerebrovascular accident with residual left hemiplegia. RECOMMENDATIONS: Continue Trandate 200 mg twice a day, Tapazole at 5 mg once a day, Feosol 325 mg once a day, aspirin 81 mg once a day, cefazolin 500 mg intravenously q. 8 hours. Silevstre Zaman MD
--- NOTE | 2017-05-27 16:10 | CP.PCM.PN ---
Subjective - Date & Time of Evaluation Date of Evaluation: 05/27/17 Time of Evaluation: 16:08 - Subjective Subjective: Vascular Surgery Progress Note for Dr. Reid Pt seen and examined this AM at bedside no acute events overnight, pt responded apropriatly to blood products, Isolated fever 100.9 Objective - Vital Signs/Intake and Output Vital Signs (last 24 hours): Temp Pulse Resp BP Pulse Ox 100.9 F H 89 18 113/49 L 95 05/27/17 15:44 05/27/17 15:44 05/27/17 15:44 05/27/17 15:44 05/27/17 15:44 Intake and Output: 05/27/17 05/27/17 06:59 18:59 Intake Total 425 1000 Balance 425 1000 - Medications Medications: Current Medications Artificial Tears (Artificial Tears) 0 ml OU DAILY [facility] Last Admin: 05/27/17 10:19 Dose: 1 drop Aspirin (Aspirin Chewable) 81 mg PO DAILY [facility] Last Admin: 05/27/17 10:18 Dose: 81 mg Brimonidine Tartrate (Alphagan 0.2% Opht) 0 ml OU Q12 [facility] Last Admin: 05/27/17 10:20 Dose: 1 drop Dorzolamide HCl (Trusopt) 0 ml OU BID [facility] Last Admin: 05/27/17 10:20 Dose: 1 drop Enoxaparin Sodium (Lovenox) 30 mg SC DAILY [facility] Last Admin: 05/22/17 09:35 Dose: 30 mg Famotidine (Pepcid) 20 mg PO DAILY [facility] Last Admin: 05/27/17 10:18 Dose: 20 mg Ferrous Sulfate (Feosol) 325 mg PO DAILY [facility] Last Admin: 05/27/17 10:18 Dose: 325 mg Cefazolin Sodium 500 mg/ (Sodium Chloride) 100 mls @ 200 mls/hr IVPB Q8H [facility] Last Admin: 05/27/17 14:07 Dose: 200 mls/hr Insulin Detemir (Levemir) 20 unit SC ACBHS [facility] Last Admin: 05/27/17 08:06 Dose: Not Given Insulin Human Regular (Novolin R) 0 unit SC ACHS [facility] PRN Reason: Protocol Last Admin: 05/27/17 12:43 Dose: 2 unit Labetalol HCl (Trandate) 200 mg PO Q12H [facility] Last Admin: 05/27/17 11:18 Dose: 200 mg Lactulose (Enulose) 30 gm PO Q2D [facility] Last Admin: 05/26/17 23:27 Dose: Not Given Latanoprost (Xalatan Opht) 0 ml OU HS [facility] Last Admin: 05/26/17 22:29 Dose: 2.5 ml Methimazole (Tapazole) 5 mg PO QAM [facility] Last Admin: 05/27/17 10:18 Dose: 5 mg Nitroglycerin (Nitro-Dur 0.4 Mg/Hr Patch) 1 patch TD DAILY [facility] Last Admin: 05/27/17 10:18 Dose: 1 patch Oxycodone/Acetaminophen (Percocet 5/325 Mg Tab) 1 tab PO Q6H PRN PRN Reason: Pain, moderate (4-7) Stop: 05/30/17 12:49 Rosuvastatin Calcium (Crestor) 10 mg PO DAILY [facility] Last Admin: 05/26/17 10:37 Dose: 10 mg Timolol Maleate (Timoptic 0.5% Ophth Soln) 1 drop OU BID [facility] Last Admin: 05/27/17 10:20 Dose: 1 drop - Labs Labs: 05/27/17 07:09 05/27/17 07:09 PT 15.0 SECONDS (9.7-12.2) H 05/26/17 08:18 INR 1.3 05/26/17 08:18 APTT 30 SECONDS (21-34) 05/26/17 08:18 - Constitutional Appears: Non-toxic - Head Exam Head Exam: ATRAUMATIC, NORMOCEPHALIC - Eye Exam Eye Exam: EOMI, Normal appearance - ENT Exam ENT Exam: Mucous Membranes Moist - Respiratory Exam Respiratory Exam: NORMAL BREATHING PATTERN - Cardiovascular Exam Cardiovascular Exam: +S1, +S2 - GI/Abdominal Exam GI & Abdominal Exam: Soft. absent: Rigid, Tenderness - Neurological Exam Neurological Exam: Alert, Awake - Psychiatric Exam Psychiatric exam: Normal Affect, Normal Mood - Skin Skin Exam: Dry, Intact Assessment and Plan - Assessment and Plan (Free Text) Assessment: 87F POD#1 S/P AKA and doing well Pain control Regular diet Incentive spirometry monitor dressing for bleeding D/W Dr. Franklin Maldonado PGY2
[2017-05-27 16:34] LABS: RAPID PLASMA REAGIN REACTIVE (NONREACTIVE)
[2017-05-27] MEDS: Latanoprost 2.5 ml Opht Soln OU SCH ×2 (22:55→23:01)
--- NOTE | 2017-05-27 23:55 | CP.PCM.PN ---
Subjective - Date & Time of Evaluation Date of Evaluation: 05/27/17 Time of Evaluation: 18:00 - Subjective Subjective: Pt seen and evalauted at bedside febrile with temp of 100.9 F H, no other complains on post op care Objective - Vital Signs/Intake and Output Vital Signs (last 24 hours): Temp Pulse Resp BP Pulse Ox 89 18 113/49 L 95 05/27/17 15:44 05/27/17 15:44 05/27/17 15:44 05/27/17 15:44 05/27/17 15:44 Intake and Output: 05/27/17 05/28/17 18:59 06:59 Intake Total 1000 Balance 1000 - Medications Medications: Current Medications Artificial Tears (Artificial Tears) 0 ml OU DAILY [facility] Last Admin: 05/27/17 10:19 Dose: 1 drop Aspirin (Aspirin Chewable) 81 mg PO DAILY [facility] Last Admin: 05/27/17 10:18 Dose: 81 mg Brimonidine Tartrate (Alphagan 0.2% Opht) 0 ml OU Q12 [facility] Last Admin: 05/27/17 22:54 Dose: 1 drop Dorzolamide HCl (Trusopt) 0 ml OU BID [facility] Last Admin: 05/27/17 18:24 Dose: 1 drop Enoxaparin Sodium (Lovenox) 30 mg SC DAILY [facility] Last Admin: 05/22/17 09:35 Dose: 30 mg Famotidine (Pepcid) 20 mg PO DAILY [facility] Last Admin: 05/27/17 10:18 Dose: 20 mg Ferrous Sulfate (Feosol) 325 mg PO DAILY [facility] Last Admin: 05/27/17 10:18 Dose: 325 mg Cefazolin Sodium 500 mg/ (Sodium Chloride) 100 mls @ 200 mls/hr IVPB Q8H [facility] Last Admin: 05/27/17 23:00 Dose: 200 mls/hr Insulin Detemir (Levemir) 20 unit SC ACBHS [facility] Last Admin: 05/27/17 22:53 Dose: 20 unit Insulin Human Regular (Novolin R) 0 unit SC ACHS [facility] PRN Reason: Protocol Last Admin: 05/27/17 22:55 Dose: Not Given Labetalol HCl (Trandate) 200 mg PO Q12H [facility] Last Admin: 05/27/17 21:00 Dose: 200 mg Lactulose (Enulose) 30 gm PO Q2D [facility] Last Admin: 05/26/17 23:27 Dose: Not Given Latanoprost (Xalatan Opht) 0 ml OU HS [facility] Last Admin: 05/27/17 23:01 Dose: 2.5 ml Methimazole (Tapazole) 5 mg PO QAM [facility] Last Admin: 05/27/17 10:18 Dose: 5 mg Nitroglycerin (Nitro-Dur 0.4 Mg/Hr Patch) 1 patch TD DAILY [facility] Last Admin: 05/27/17 10:18 Dose: 1 patch Oxycodone/Acetaminophen (Percocet 5/325 Mg Tab) 1 tab PO Q6H PRN PRN Reason: Pain, moderate (4-7) Stop: 05/30/17 12:49 Rosuvastatin Calcium (Crestor) 10 mg PO DAILY [facility] Last Admin: 05/26/17 10:37 Dose: 10 mg Timolol Maleate (Timoptic 0.5% Ophth Soln) 1 drop OU BID [facility] Last Admin: 05/27/17 18:24 Dose: 1 drop - Labs Labs: 05/27/17 07:09 05/27/17 07:09 PT 15.0 SECONDS (9.7-12.2) H 05/26/17 08:18 INR 1.3 05/26/17 08:18 APTT 30 SECONDS (21-34) 05/26/17 08:18 Assessment and Plan (1) Gangrene associated with type 2 diabetes mellitus Assessment & Plan: 87F POD#1 S/P AKA and doing well Pain control Regular diet Incentive spirometry monitor dressing for bleeding Status: Acute (2) Diabetic nephropathy Status: Acute (3) Diabetic retinopathy Status: Acute (4) Diabetes mellitus Status: Acute (5) Foot infection Status: Acute
[2017-05-28] MEDS: Insulin Detemir 100 units/ml Vial (Levemir) SC SCH (08:00)
[2017-05-28] MEDS: (Novolin R) Insulin Human Regular 100 units/ml vial SC SCH ×2 (08:01→12:24)
[2017-05-28] MEDS: Dorzolamide 2% Opht Sol 10ml OU SCH (09:17)
[2017-05-28] MEDS: Aritificial Tears (15ml) OU SCH (09:17)
[2017-05-28] MEDS: Nitroglycerin 0.4 mg/hr Top Patch TD SCH (09:17)
[2017-05-28] MEDS: Brimonidine 0.2% Opth Sol (5ml) OU SCH (09:17)
[2017-05-28 11:21] LABS: BASO % 0.3 % (0.0-2.0); EOS # 0.1 K/uL (0.0-0.7); EOS % 0.4 % (0.0-4.0); HEMOGLOBIN 8.6 g/dL (11.0-16.0); LYMPH # 1.7 K/uL (1.0-4.3); LYMPH % 11.5 % (20.0-40.0); MEAN CELL VOLUME 85.7 fL (81.0-99.0); MEAN CORPUSCULAR HEMOGLOBIN 27.8 pg (27.0-31.0); MEAN CORPUSCULAR HGB CONC 32.5 g/dL (33.0-37.0); MEAN PLATELET VOLUME 9.5 fL (7.2-11.7); MONO # 0.9 K/uL (0.0-0.8); NEUT % 81.8 % (50.0-75.0); RBC 3.08 Mil/uL (3.80-5.20); RED CELL DISTRIBUTION WIDTH 15.8 % (11.5-14.5); WHITE BLOOD COUNT 14.6 K/uL (4.8-10.8)
[2017-05-28 11:28] LABS: BLOOD UREA NITROGEN 23 mg/dL (7-17); GFR AFRICAN-AMERICAN > 60; GFR NON-AFRICAN AMERICAN 52
[2017-05-28] MEDS: methIMAzole 5 MG TAB PO SCH (12:17)
--- NOTE | 2017-05-28 12:18 | CP.PCM.PN ---
Subjective - Date & Time of Evaluation Date of Evaluation: 05/28/17 Time of Evaluation: 09:40 - Subjective Subjective: General Surgery Pt S&E, NAEO. No complaints at this time. Objective - Vital Signs/Intake and Output Vital Signs (last 24 hours): Temp Pulse Resp BP Pulse Ox 98.7 F 81 20 152/77 H 18 L 05/28/17 08:39 05/28/17 08:39 05/27/17 23:35 05/28/17 08:39 05/28/17 08:39 - Medications Medications: Current Medications Artificial Tears (Artificial Tears) 0 ml OU DAILY [facility] Last Admin: 05/28/17 09:17 Dose: 1 drop Aspirin (Aspirin Chewable) 81 mg PO DAILY [facility] Last Admin: 05/28/17 11:04 Dose: 81 mg Brimonidine Tartrate (Alphagan 0.2% Opht) 0 ml OU Q12 [facility] Last Admin: 05/28/17 09:17 Dose: 1 drop Dorzolamide HCl (Trusopt) 0 ml OU BID [facility] Last Admin: 05/28/17 09:17 Dose: 1 drop Enoxaparin Sodium (Lovenox) 30 mg SC DAILY [facility] Last Admin: 05/22/17 09:35 Dose: 30 mg Famotidine (Pepcid) 20 mg PO DAILY [facility] Last Admin: 05/28/17 11:04 Dose: 20 mg Ferrous Sulfate (Feosol) 325 mg PO DAILY [facility] Last Admin: 05/28/17 11:04 Dose: 325 mg Cefazolin Sodium 500 mg/ (Sodium Chloride) 100 mls @ 200 mls/hr IVPB Q8H [facility] Last Admin: 05/28/17 06:00 Dose: 200 mls/hr Insulin Detemir (Levemir) 20 unit SC ACBHS [facility] Last Admin: 05/28/17 08:00 Dose: 20 unit Insulin Human Regular (Novolin R) 0 unit SC ACHS [facility] PRN Reason: Protocol Last Admin: 05/28/17 08:01 Dose: 2 unit Labetalol HCl (Trandate) 200 mg PO Q12H [facility] Last Admin: 05/27/17 21:00 Dose: 200 mg Lactulose (Enulose) 30 gm PO Q2D [facility] Last Admin: 05/26/17 23:27 Dose: Not Given Latanoprost (Xalatan Opht) 0 ml OU HS [facility] Last Admin: 05/27/17 23:01 Dose: 2.5 ml Methimazole (Tapazole) 5 mg PO QAM [facility] Last Admin: 05/27/17 10:18 Dose: 5 mg Nitroglycerin (Nitro-Dur 0.4 Mg/Hr Patch) 1 patch TD DAILY [facility] Last Admin: 05/27/17 10:18 Dose: 1 patch Oxycodone/Acetaminophen (Percocet 5/325 Mg Tab) 1 tab PO Q6H PRN PRN Reason: Pain, moderate (4-7) Stop: 05/30/17 12:49 Last Admin: 05/28/17 05:49 Dose: 1 tab Rosuvastatin Calcium (Crestor) 10 mg PO DAILY [facility] Last Admin: 05/28/17 11:05 Dose: Not Given Timolol Maleate (Timoptic 0.5% Ophth Soln) 1 drop OU BID [facility] Last Admin: 05/27/17 18:24 Dose: 1 drop - Labs Labs: 05/28/17 11:01 05/28/17 11:01 PT 15.0 SECONDS (9.7-12.2) H 05/26/17 08:18 INR 1.3 05/26/17 08:18 APTT 30 SECONDS (21-34) 05/26/17 08:18 - Constitutional Appears: Non-toxic, No Acute Distress - Head Exam Head Exam: ATRAUMATIC, NORMOCEPHALIC - Respiratory Exam Respiratory Exam: NORMAL BREATHING PATTERN. absent: Respiratory Distress - GI/Abdominal Exam GI & Abdominal Exam: Soft. absent: Distended, Tenderness - Extremities Exam Extremities Exam: Tenderness (at in cision site) Additional comments: RLE dressing C/D/I - Back Exam Back Exam: absent: CVA tenderness (L), CVA tenderness (R) - Skin Skin Exam: Dry, Warm Assessment and Plan - Assessment and Plan (Free Text) Assessment: 87F POD #2 S/P right AKA Plan: Keep dressing on Monitor for bleeding at dressing Analgesia PRN D/W Dr. Kenroy Vela PGY4
--- NOTE | 2017-05-28 14:36 | CP.PCM.PN ---
Subjective - Date & Time of Evaluation Date of Evaluation: 05/28/17 Time of Evaluation: 11:30 - Subjective Subjective: Patient seen today, more alert today, NAD No overnight events reported s/p R AKA POD #2 HGB- 8.6 today s/p PRBC transfusion post op Objective - Vital Signs/Intake and Output Vital Signs (last 24 hours): Temp Pulse Resp BP Pulse Ox 98.7 F 81 20 152/77 H 18 L 05/28/17 08:39 05/28/17 08:39 05/27/17 23:35 05/28/17 08:39 05/28/17 08:39 - Medications Medications: Current Medications Artificial Tears (Artificial Tears) 0 ml OU DAILY [facility] Last Admin: 05/28/17 09:17 Dose: 1 drop Aspirin (Aspirin Chewable) 81 mg PO DAILY [facility] Last Admin: 05/28/17 11:04 Dose: 81 mg Brimonidine Tartrate (Alphagan 0.2% Opht) 0 ml OU Q12 [facility] Last Admin: 05/28/17 09:17 Dose: 1 drop Dorzolamide HCl (Trusopt) 0 ml OU BID [facility] Last Admin: 05/28/17 09:17 Dose: 1 drop Enoxaparin Sodium (Lovenox) 30 mg SC DAILY [facility] Last Admin: 05/22/17 09:35 Dose: 30 mg Famotidine (Pepcid) 20 mg PO DAILY [facility] Last Admin: 05/28/17 11:04 Dose: 20 mg Ferrous Sulfate (Feosol) 325 mg PO DAILY [facility] Last Admin: 05/28/17 11:04 Dose: 325 mg Cefazolin Sodium 500 mg/ (Sodium Chloride) 100 mls @ 200 mls/hr IVPB Q8H [facility] Last Admin: 05/28/17 14:14 Dose: 200 mls/hr Insulin Detemir (Levemir) 20 unit SC ACBHS [facility] Last Admin: 05/28/17 08:00 Dose: 20 unit Insulin Human Regular (Novolin R) 0 unit SC ACHS [facility] PRN Reason: Protocol Last Admin: 05/28/17 12:24 Dose: 1 unit Labetalol HCl (Trandate) 200 mg PO Q12H [facility] Last Admin: 05/28/17 12:16 Dose: 200 mg Lactulose (Enulose) 30 gm PO Q2D [facility] Last Admin: 05/26/17 23:27 Dose: Not Given Latanoprost (Xalatan Opht) 0 ml OU HS [facility] Last Admin: 05/27/17 23:01 Dose: 2.5 ml Methimazole (Tapazole) 5 mg PO QAM [facility] Last Admin: 05/28/17 12:17 Dose: 5 mg Nitroglycerin (Nitro-Dur 0.4 Mg/Hr Patch) 1 patch TD DAILY [facility] Last Admin: 05/28/17 09:17 Dose: 1 patch Oxycodone/Acetaminophen (Percocet 5/325 Mg Tab) 1 tab PO Q6H PRN PRN Reason: Pain, moderate (4-7) Stop: 05/30/17 12:49 Last Admin: 05/28/17 05:49 Dose: 1 tab Rosuvastatin Calcium (Crestor) 10 mg PO DAILY [facility] Last Admin: 05/28/17 11:05 Dose: Not Given Timolol Maleate (Timoptic 0.5% Ophth Soln) 1 drop OU BID [facility] Last Admin: 05/28/17 09:25 Dose: 1 drop - Labs Labs: 05/28/17 11:01 05/28/17 11:01 PT 15.0 SECONDS (9.7-12.2) H 05/26/17 08:18 INR 1.3 05/26/17 08:18 APTT 30 SECONDS (21-34) 05/26/17 08:18 - Constitutional Appears: Well, No Acute Distress - Respiratory Exam Respiratory Exam: Clear to Ausculation Bilateral, NORMAL BREATHING PATTERN - Cardiovascular Exam Cardiovascular Exam: REGULAR RHYTHM, +S1, +S2 - Neurological Exam Neurological Exam: Alert, Awake Neuro motor strength exam: Right Lower Extremity: 0 (r aka with dressing in place- no bleeding noted ) Assessment and Plan - Assessment and Plan (Free Text) Assessment: A/P 87 yr old female admitted with PAD, necrosis of distal RLE, s/p R AKA pod #2 S/P PRBC TRANSFUSION hgb - stable seen by Dr. Jasmine , cleared for discharge back to [facility] from surgical standpoint and f/u with his office in 2 weeks D/w Dr. Montana, stable for discharge back to [facility] today and will follow the patient at [facility] will repeat cbc ON FRIDAY at [facility]
[2017-05-28 15:53] VITALS: PULSE 85; RESP 18; TEMP 98.3; O2SAT 97
[2017-05-28 16:35] VITALS: BP 153/71
--- NOTE | 2017-05-28 17:32 | PN ---
DATE: SUBJECTIVE: The patient is eating. She answered my questions that she is happy, has no chest pain or abdominal pain. PHYSICAL EXAMINATION: VITAL SIGNS: Blood pressure 152/77, heart rate 81, temperature 98.7, respirations 18. HEENT: Pale conjunctivae. CHEST: Clear. HEART: S1, S2 regular. EXTREMITIES: Right above-knee amputation. LABORATORY DATA: Today's SMA-7: Sodium 144, potassium 3.7, chloride 109, CO2 of 26, glucose , BUN 23, creatinine 1.0. Today's hemoglobin and hematocrit 8.6 and 26.4, white count 14.6 and platelet count 110,000. ASSESSMENT: 1. Status post right above-knee amputation. 2. Anemia and mild thrombocytopenia. 3. Uncontrolled diabetes mellitus. 4. Hyperthyroidism. 5. History of cerebrovascular accident with residual left hemiplegia. RECOMMENDATIONS: Continue current aspirin, Crestor, Feosol, subcutaneous Lovenox, methimazole, labetalol. [facility] point [facility]. Silvestre Zaman MD
--- NOTE | 2017-05-29 08:42 | CP.PCM.DIS ---
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 Hospital Course - Lab Results Lab Results: Most Recent Lab Values WBC 14.6 K/uL (4.8-10.8) H 05/28/17 11:01 RBC 3.08 Mil/uL (3.80-5.20) L 05/28/17 11:01 Hgb 8.6 g/dL (11.0-16.0) L 05/28/17 11:01 Hct 26.4 % (34.0-47.0) L 05/28/17 11:01 MCV 85.7 fL (81.0-99.0) 05/28/17 11:01 MCH 27.8 pg (27.0-31.0) 05/28/17 11:01 MCHC 32.5 g/dL (33.0-37.0) L 05/28/17 11:01 RDW 15.8 % (11.5-14.5) H 05/28/17 11:01 Plt Count 110 K/uL (130-400) L D 05/28/17 11:01 MPV 9.5 fL (7.2-11.7) 05/28/17 11:01 Neut % (Auto) 81.8 % (50.0-75.0) H 05/28/17 11:01 Lymph % (Auto) 11.5 % (20.0-40.0) L 05/28/17 11:01 [place]oshone % (Auto) 6.0 % (0.0-10.0) 05/28/17 11:01 Eos % (Auto) 0.4 % (0.0-4.0) 05/28/17 11:01 Baso % (Auto) 0.3 % (0.0-2.0) 05/28/17 11:01 Neut # (Auto) 12.0 K/uL (1.8-7.0) H 05/28/17 11:01 Lymph # (Auto) 1.7 K/uL (1.0-4.3) 05/28/17 11:01 [place]oshone # (Auto) 0.9 K/uL (0.0-0.8) H 05/28/17 11:01 Eos # (Auto) 0.1 K/uL (0.0-0.7) 05/28/17 11:01 Baso # (Auto) 0.0 K/uL (0.0-0.2) 05/28/17 11:01 Differential Comment 05/28/17 11:01 PT 15.0 SECONDS (9.7-12.2) H 05/26/17 08:18 INR 1.3 05/26/17 08:18 APTT 30 SECONDS (21-34) 05/26/17 08:18 Sodium 144 mmol/L (132-148) 05/28/17 11:01 Potassium 3.7 mmol/L (3.6-5.2) 05/28/17 11:01 Chloride 109 mmol/L (98-107) H 05/28/17 11:01 Carbon Dioxide 26 mmol/L (22-30) 05/28/17 11:01 Anion Gap 12 (10-20) 05/28/17 11:01 BUN 23 mg/dL (7-17) H 05/28/17 11:01 Creatinine 1.0 mg/dL (0.7-1.2) 05/28/17 11:01 Est GFR ( Amer) > 60 05/28/17 11:01 Est GFR (Non-Af Amer) 52 05/28/17 11:01 POC Glucose (mg/dL) 188 mg/dL (65-110) H 05/28/17 11:19 Random Glucose 264 mg/dL (65-105) H 05/28/17 11:01 Calcium 8.0 mg/dl (8.6-10.4) L 05/28/17 11:01 Total Bilirubin 0.3 mg/dL (0.2-1.3) 05/26/17 08:18 AST 19 U/L (14-36) 05/26/17 08:18 ALT < 6 U/L (9-52) L D 05/26/17 08:18 Alkaline Phosphatase 123 U/L (38-126) 05/26/17 08:18 Total Protein 7.6 g/dL (6.3-8.3) 05/26/17 08:18 Albumin 3.4 g/dL (3.5-5.0) L 05/26/17 08:18 Globulin 4.3 gm/dL (2.2-3.9) H 05/26/17 08:18 Albumin/Globulin Ratio 0.8 (1.0-2.1) L 05/26/17 08:18 RPR Titer 1:2 (NONREACTIVE) H 05/26/17 23:08 RPR Reactive (NONREACTIVE) H 05/26/17 23:08 Hepatitis A IgM Ab Negative (NEGATIVE) 05/26/17 23:08 Hep Bs Antigen Negative (NEGATIVE) 05/26/17 23:08 Hep Bs Antibody Positive (NEGATIVE) 05/26/17 23:08 Hep B Core IgM Ab Negative (NEGATIVE) 05/26/17 23:08 Hepatitis C Antibody Reactive (NEGATIVE) 05/26/17 23:08 HIV 1&2 Ag/Ab, 4th Gen Nonreactive (Nonreactive) 05/26/17 23:07 HIV 1&2 Antibody Screen Negative (NEGATIVE) 05/26/17 23:08 Blood Type O POSITIVE 05/26/17 15:24 Antibody Screen Negative 05/26/17 15:24 - Hospital Course Hospital Course: Patient seen today, is stable for discharge, more alert today, NAD No overnight events reported s/p R AKA POD #2 HGB- 8.6 today s/p PRBC transfusion post op 87 yr old female admitted with PAD, necrosis of distal RLE, s/p R AKA pod #2 S/P PRBC TRANSFUSION hgb - stable seen by Dr. Barahona , cleared for discharge back to [facility] from surgical standpoint and f/u with his office in 2 weeks discharge back to [facility] today and I will follow the patient at [facility] will repeat cbc ON FRIDAY at [facility] Discharge Exam - Head Exam Head Exam: ATRAUMATIC, NORMOCEPHALIC Discharge Plan - Follow Up Plan Condition: STABLE Disposition: DETENTION FAC W/PLAN READMIS Instructions: Heart Failure (DC), Acute Kidney Injury (DC), Complete Blenderized Diet (DC), Above the Knee Amputation (DC) Additional Instructions: PLEASE CALL DR. MONTANA UPON PATIENT ARRIVAL TO THE FACILITY PLEASE F/U WITH DR. BARAHONA OFFICE IN 2 WEEK- CALL AND MAKE APPOINTMENT - PLEASE LEAVE THE DRESSING UNTIL SEEN BY DR. BARAHONA GENA NEEDS TO BE OUT AFTER 4 WEEKS PLEASE CHECK DRESSING FOR ANY BLEEDING - DO NOT REMOVE DRESSING , LEAVE IT IS PLEASE REPEAT CBC, BMP ON FRIDAY AND THEN WEEKLY Referrals: Sabas Montana MD [Staff Provider] - Stephen Barahona Jr., MD [Staff Provider] -
--- NOTE | 2017-05-29 08:47 | CARD ---
APPROVED REPORT EKG Measurement Heart [id number] <Conclusion> Sinus tachycardia Nonspecific ST and T wave abnormality Abnormal ECG
== END 2017-05-28 17:20 | DRG 240 ==
LOC: C.ER 19:53 → C.9E 22:24 → C.3T 22:46 → C.6T 05-26 19:55 → C.5S 05-28 09:37 → C.6T 05-28 09:45
PROVIDERS: ADMIT Internal Medicine; ATTEND Internal Medicine
PROC: 0Y6C0Z3 Detachment at Right Upper Leg, Low, Open Approach (ICD-10-PCS; principal; 2017-05-26 12:30)
PROC: 30233N1 Transfusion of Nonautologous Red Blood Cells into Peripheral Vein, Percutaneous Approach (ICD-10-PCS; 2017-05-27)
DX: E11.52 Type 2 diabetes mellitus with diabetic peripheral angiopathy with gangrene (principal); E11.21 Type 2 diabetes mellitus with diabetic nephropathy; D69.6 Thrombocytopenia, unspecified; M86.171 Other acute osteomyelitis, right ankle and foot; E11.40 Type 2 diabetes mellitus with diabetic neuropathy, unspecified; E11.22 Type 2 diabetes mellitus with diabetic chronic kidney disease; I13.0 Hypertensive heart and chronic kidney disease with heart failure and stage 1 through stage 4 chronic kidney disease, or unspecified chronic kidney disease; I69.354 Hemiplegia and hemiparesis following cerebral infarction affecting left non-dominant side; L03.115 Cellulitis of right lower limb; M86.671 Other chronic osteomyelitis, right ankle and foot; E11.621 Type 2 diabetes mellitus with foot ulcer; E11.65 Type 2 diabetes mellitus with hyperglycemia; E05.90 Thyrotoxicosis, unspecified without thyrotoxic crisis or storm; L97.514 Non-pressure chronic ulcer of other part of right foot with necrosis of bone; E11.69 Type 2 diabetes mellitus with other specified complication; E11.311 Type 2 diabetes mellitus with unspecified diabetic retinopathy with macular edema; D64.9 Anemia, unspecified; N18.9 Chronic kidney disease, unspecified; I50.9 Heart failure, unspecified; E78.5 Hyperlipidemia, unspecified; F03.90 Unspecified dementia, unspecified severity, without behavioral disturbance, psychotic disturbance, mood disturbance, and anxiety; I25.10 Atherosclerotic heart disease of native coronary artery without angina pectoris; Z95.5 Presence of coronary angioplasty implant and graft; Z79.4 Long term (current) use of insulin